=== PATIENT | female | born 1940 | race Caucasian/White ===

== ENCOUNTER 2020-07-16 18:30 | Emergency (ER) | payer MEDICARE ==
[~2020-07-16] VITALS: Ht 177.8 cm; Wt 70.0 kg
[2020-07-16] MEDS ORDERED: ASPI-630 PO (18:40)
[2020-07-16] MEDS ORDERED: AMLO5TAB4 PO (18:40)
--- NOTE | 2020-07-16 19:05 | PHYS DOC ---
Past History Past Medical History: A-Fib Alcohol Use: None General Adult EDM: Chief Complaint: RAPID HEART RATE HPI: HPI: Patient is a 79-year-old female coming in for rapid heart rate. Patient states that while she was cooking today she noticed her heart rate was elevated, will when checked it was in the 1 15-1 20 range. Patient has a history of A. fib and says she is normally well rate and rhythm controlled on sotalol and her heart rate is usually in the 60s. States she called her outside installer apprentice around 1600 and was told to take her evening dose of sotalol. She was instructed to go to the emergency department if her heart rate did not respond in an hour and a half. Patient denies any chest pain or shortness of breath but says she feels like something is "off" in her sternal chest area. Also states she gets a little lightheaded when standing. Denies any recent illness or decreased p.o. intake. States she has been compliant on medications. Review of Systems: Review of Systems: Constitutional: Denies fever or chills Eyes: Denies change in visual acuity HENT: Denies nasal congestion or sore throat Respiratory: Denies cough or shortness of breath Cardiovascular: Substernal chest pain, no lower extremity edema, rapid heart rate GI: Denies abdominal pain, nausea, vomiting, bloody stools or diarrhea : Denies dysuria Musculoskeletal: Denies back pain or joint pain Integument: Denies rash Neurologic: Denies headache, focal weakness or sensory changes Endocrine: Denies polyuria or polydipsia Lymphatic: Denies swollen glands Psychiatric: Denies depression or anxiety Allergies: Allergies: Allergies Coded Allergies Type Severity Reaction Last Updated Verified No Known Drug Allergies 07/16/20 No Physical Exam: PE: Constitutional: Well developed, well nourished, no acute distress, non-toxic appearance. [] HENT: Normocephalic, atraumatic, bilateral external ears normal, oropharynx moist, no oral exudates, nose normal. [] Eyes: PERRLA, EOMI, conjunctiva normal, no discharge. [] Neck: Normal range of motion, no tenderness, supple, no stridor. [] Cardiovascular: Irregularly irregular rhythm, tachycardia Lungs & Thorax: Slight basilar crackles Abdomen: Bowel sounds normal, soft, no tenderness, no masses, no pulsatile masses. [] Skin: Warm, dry, no erythema, no rash. [] Back: No tenderness, no CVA tenderness. [] Extremities: No tenderness, no cyanosis, no clubbing, ROM intact, no edema. [] Neurologic: Alert and oriented X 3, normal motor function, normal sensory function, no focal deficits noted. [] Psychologic: Affect normal, judgement normal, mood normal. [] Current Patient Data: Vital Signs: Vital Signs Date Time Temp Pulse Resp B/P (MAP) Pulse Ox O2 Delivery O2 Flow Rate FiO2 07/16/20 18:51 97.3 117 143/94 (110) 98 Room Air 07/16/20 18:44 18 EKG: EKG: Regular regular, atrial fibrillation, heart rate 126, no ST elevation or depression, left axis deviation. [] Radiology/Procedures: Radiology/Procedures: CHEST PA LATERAL History: Reason: afib onset this afternoon, lightheaded / Spl. Instructions: / History: Comparison: CT December 15, 2010 Findings: Hyperinflation. No consolidation or pleural effusion. Normal heart size. No pneumothorax. Postop changes upper abdomen. Impression: 1. No acute cardiopulmonary process. [] Heart Score: HEART Score for Chest Pain: HEART Score for Chest Pain Response (Comments) Value History Slighlty/Non-Suspicious 0 ECG Nonspecific Repolarizatio 1 Age > 65 2 Risk Factors 1 or 2 Risk Factors 1 Total 4 Risk Factors: Risk Factors: DM, Current or recent (<one month) smoker, HTN, HLP, family history of CAD, obesity. Risk Scores: Score 0 - 3: 2.5% MACE over next 6 weeks - Discharge Home Score 4 - 6: 20.3% MACE over next 6 weeks - Admit for Clinical Observation Score 7 - 10: 72.7% MACE over next 6 weeks - Early Invasive Strategies Course & Med Decision Making: Course & Med Decision Making Pertinent Labs and Imaging studies reviewed. (See chart for details) Consult with Dr. Luna who was able to access patient's charts from . Does not recommend cardioversion in the emergency department and recommends increasing patient's sotalol to 120 mg twice daily and having her follow-up with her outside installer apprentice in 2 days. However patient's repeat troponin at 4 hours after symptom onset shows it has gone up from undetectable to 0.045. Discussed with patient she would like to be transferred to since that is where her outside installer apprentice is. Discussed with transfer line, patient accepted by the hospitalist [] Blanca Disclaimer: Blanca Disclaimer: This electronic medical record was generated, in whole or in part, using a voice recognition dictation system. Departure Departure: Impression: Primary Impression: Paroxysmal atrial fibrillation Additional Impression: Urinary tract infection Disposition: 02 DC/TRF OTHER SHORT TERM HOS Condition: GUARDED Referrals: Dr. Fernández Patient Instructions: Atrial Fibrillation Scripts Nitrofurantoin Monohyd/M-Cryst (MACROBID 100 MG CAPSULE) 100 Mg Capsule 1 CAP PO BID for UTI for 5 Days, #10 CAP 0 Refills Prov: ISMAEL GRAY MD 07/16/20 ISMAEL GRAY MD Jul 16, 2020 19:05
[2020-07-16] MEDS ORDERED: [UNRECOGNIZED DRUG - OTHER] (19:14)
[2020-07-16] MEDS ORDERED: COLC0.6T45 PO (19:14)
[2020-07-16] MEDS ORDERED: LORA10TA68 PO (19:14)
[2020-07-16 19:15] LABS: BASO % 1 % (0-3); EOS # 0.1 x10^3/uL (0.0-0.7); EOS % 1 % (0-3); HEMATOCRIT 42.5 % (36.0-47.0); HEMOGLOBIN 13.6 g/dL (12.0-15.5); LYMPH # 1.7 x10^3/uL (1.0-4.8); LYMPH % 19 % (24-48); MEAN CORPUSCULAR HEMOGLOBIN 29 pg (25-35); MEAN CORPUSCULAR HGB CONC 32 g/dL (31-37); MEAN CORPUSCULAR VOLUME 92 fL (79-100); MONO # 0.7 x10^3/uL (0.0-1.1); MONO % 7 % (0-9); NEUT # 6.7 x10^3uL (1.8-7.7); NEUT % 73 % (31-73); PLATELET COUNT 347 x10^3/uL (140-400); RED BLOOD COUNT 4.62 x10^6/uL (3.50-5.40); RED CELL DISTRIBUTION WIDTH 14.3 % (11.5-14.5); WHITE BLOOD COUNT 9.1 x10^3/uL (4.0-11.0)
[2020-07-16 19:17] LABS: CALCIUM 8.9 mg/dL (8.5-10.1); CREATININE 0.9 mg/dL (0.6-1.0); GFR 60.4
[2020-07-16] MEDS ORDERED: WARF5TAB2 PO (19:26)
[2020-07-16] MEDS ORDERED: IPRA15SP2 NS (19:26)
[2020-07-16] MEDS ORDERED: OMEP20CA5 PO (19:26)
[2020-07-16] MEDS ORDERED: SUCR1TAB35 PO (19:26)
[2020-07-16] MEDS ORDERED: LORA0.5T21 PO (19:26)
[2020-07-16] MEDS ORDERED: LOSA100T2 PO (19:26)
[2020-07-16] MEDS ORDERED: SOTA80TA20 PO (19:26)
[2020-07-16 19:29] LABS: ALBUMIN 3.3 g/dL (3.4-5.0); ALBUMIN/GLOBULIN RATIO 0.8 (1.0-1.7); MAGNESIUM 2.2 mg/dL (1.8-2.4); TOTAL BILIRUBIN 0.4 mg/dL (0.2-1.0); TOTAL PROTEIN 7.4 g/dL (6.4-8.2)
[2020-07-16 19:39] LABS: BILIRUBIN,URINE NEG (NEG); CLARITY,URINE HAZY; COLOR,URINE YELLOW; GLUCOSE,URINE NEG (NEG)
[2020-07-16 19:40] LABS: BACTERIA,URINE FEW /HPF (0-FEW); NITRITE,URINE NEG (NEG); SQUAMOUS EPITHELIAL CELL,UR FEW /LPF; UROBILINOGEN,URINE 0.2 mg/dL (0.2 mg/dL); WBC,URINE >40 /HPF (0-4)
--- NOTE | 2020-07-16 19:42 | RAD ---
CHEST PA LATERAL History: Reason: afib onset this afternoon, lightheaded / Spl. Instructions: / History: Comparison: CT December 15, 2010 Findings: Hyperinflation. No consolidation or pleural effusion. Normal heart size. No pneumothorax. Postop changes upper abdomen. Impression: 1. No acute cardiopulmonary process. Electronically signed by: Antonio Gómez DO (07/16/2020 7:39 PM) [facility] [place]
[2020-07-16] MEDS ORDERED: IV NORMAL SALINE 500ML 500 ML IV ONE (19:45)
--- NOTE | 2020-07-16 19:56 | EKG ---
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
[2020-07-16] MEDS ORDERED: NITR100C62 PO (20:21)
[2020-07-16] MEDS ORDERED: SOTALOL 80 MG TABLET. PO ONE (20:45)
[2020-07-16 21:33] VITALS: BP 136/77
== END 2020-07-16 22:07 | disposition short-term general hospital (02) ==
LOC: ER 18:30
DX: I48.0 Paroxysmal atrial fibrillation (principal); N39.0 Urinary tract infection, site not specified
CPT/HCPCS: 36415; 71046; 80053; 81001; 83690; 83735; 83880; 84484; 85025; 85379; 85610; 87086; 93005; 99285; J7040

== ENCOUNTER 2020-08-03 17:55 | Emergency (ER) | payer MEDICARE ==
[~2020-08-03] VITALS: Ht 177.8 cm; Wt 70.0 kg
[~2020-08-03 17:55] MED LIST: AMLO5TAB4 PO; ASPI-630 PO; COLC0.6T45 PO; IPRA15SP2 NS; LORA0.5T21 PO; LORA10TA68 PO; LOSA100T2 PO; NITR100C62 PO; OMEP20CA5 PO; SOTA80TA20 PO; SUCR1TAB35 PO; WARF5TAB2 PO; [UNRECOGNIZED DRUG - OTHER]
--- NOTE | 2020-08-03 18:27 | PHYS DOC ---
Past History Past Medical History: A-Fib Alcohol Use: None Adult General Chief Complaint Chief Complaint: SHORTNESS OF BREATH HPI HPI Patient is a 79-year-old female comes emergency department with complaints of shortness of breath with a cough for the last several months, patient states is been getting a little worse over the past 2 months, patient states she has been seeing her primary care Dr. Sai Juarez several times and does not feel like she is being treated closely enough, patient states that she had a negative Covid test on 1124, patient states that she was given a Medrol dose pack for a diagnosis of seasonal allergies approximately 5 days ago and has just 1 or 2 doses left reports she has done, patient states that Dr. Juarez started her on Flonase nasal spray along with Singulair which she started yesterday has taken 1 dose and did not feel immediately better so she decided she should come into the emergency department and have her symptoms evaluated. Patient reports of a runny nose for greater than a year, states that she has this liquid in her throat for approximately a year, patient states that she has been congested and coughing up white mucus for greater than 2 months, patient does deny chest pain, denies shortness of breath however reports that she does get a little short of breath if she is up moving around a lot, patient denies any cough at rest, patient states that when she goes to bed at night that she does experience some cough and this is when she expels her white sputum. Patient states that she has a bad stomach and she has been nauseated her entire life and has found no medications that help her. Patient denies any other physical illness or physical complaints. Review of Systems Review of Systems 14 body systems of review of systems have been reviewed. See HPI for pertinent positives and negative responses, otherwise all other systems are negative, nonpertinent or noncontributory. Current Medications Current Medications Amlodipine 5 mg twice daily, 81 mg ASA EC daily, Lipitor 20 mg daily, Wellbutrin XL 150 mg daily, 10 mg Claritin daily, HydroDIURIL 12.5 mg daily, Atrovent 42 mcg nasal spray daily, Imodium AD as needed, Pacerone 200 mg, prednisone 10 mg, Ativan 0.5 mg every 8 hours, Cozaar 100 mg daily, omeprazole DR 20 mg twice daily, Osteo Bi-Flex daily, 20 mEq potassium chloride SR daily, Carafate 1 g tablet 4 times daily, MVI daily, 5 mg Coumadin daily, Allergies Allergies Allergies Coded Allergies Type Severity Reaction Last Updated Verified No Known Drug Allergies 07/16/20 No Physical Exam Physical Exam Constitutional: Well developed, well nourished, no acute distress, non-toxic appearance. HENT: Normocephalic, atraumatic, bilateral external ears normal, oropharynx moist, no oral exudates, nose normal. Eyes: PERRLA, EOMI, conjunctiva normal, no discharge. Neck: Normal range of motion, no tenderness, supple, no stridor. Cardiovascular:Heart rate regular rhythm, no murmur Lungs & Thorax: Left lower lobe inspiratory and expiratory crackles to auscultation otherwise no adventitious lung sounds noted on left upper lobe or right upper middle or lower lobes. Abdomen: Bowel sounds normal, soft, no tenderness, no masses, no pulsatile masses. Skin: Warm, dry, no erythema, no rash. Back: No tenderness, no CVA tenderness. Extremities: No tenderness, no cyanosis, no clubbing, ROM intact, no edema. Neurologic: Alert and oriented X 3, normal motor function, normal sensory function, no focal deficits noted. Psychologic: Affect normal, judgement normal, mood normal. Current Patient Data Vital Signs Patient's initial vital signs upon examination left upper extremity 141/61 on NIBP, oral temp 97.6, respirations 16 and nonlabored, heart rate 102, oxygen saturation 95% on room air. Lab Results Laboratory Tests Test 08/03/20 18:25 White Blood Count 4.5 x10^3/uL Red Blood Count 4.70 x10^6/uL Hemoglobin 13.6 g/dL Hematocrit 42.4 % Mean Corpuscular Volume 90 fL Mean Corpuscular Hemoglobin 29 pg Mean Corpuscular Hemoglobin Concent 32 g/dL Red Cell Distribution Width 14.0 % Platelet Count 190 x10^3/uL Neutrophils (%) (Auto) 78 % Lymphocytes (%) (Auto) 12 % Monocytes (%) (Auto) 10 % Eosinophils (%) (Auto) 0 % Basophils (%) (Auto) 0 % Neutrophils # (Auto) 3.5 x10^3uL Lymphocytes # (Auto) 0.5 x10^3/uL Monocytes # (Auto) 0.5 x10^3/uL Eosinophils # (Auto) 0.0 x10^3/uL Basophils # (Auto) 0.0 x10^3/uL Prothrombin Time > 120.0 SEC Prothromb Time International Ratio > 10.0 Activated Partial Thromboplast Time 68 SEC D-Dimer (Jaclyn) 0.29 mg/L Sodium Level 139 mmol/L Potassium Level 3.8 mmol/L Chloride Level 100 mmol/L Carbon Dioxide Level 28 mmol/L Anion Gap 11 Blood Urea Nitrogen 28 mg/dL Creatinine 1.1 mg/dL Estimated GFR (Cockcroft-Gault) 47.9 BUN/Creatinine Ratio 25 Glucose Level 141 mg/dL Lactic Acid Level 1.8 mmol/L Calcium Level 8.5 mg/dL Magnesium Level 2.1 mg/dL Total Bilirubin 0.7 mg/dL Aspartate Amino Transf (AST/SGOT) 44 U/L Alanine Aminotransferase (ALT/SGPT) 29 U/L Alkaline Phosphatase 108 U/L Troponin I Quantitative < 0.017 ng/mL Total Protein 6.2 g/dL Albumin 2.6 g/dL Albumin/Globulin Ratio 0.7 Current Medications Medications (Trade) Dose Ordered Sig/Rosa Route PRN Reason Start Time Stop Time Status Last Admin Dose Admin Albuterol Sulfate (Ventolin) 2.5 mg STK-MED ONCE .ROUTE 08/03/20 18:57 08/03/20 18:57 DC Phytonadione (Vitamin K) 2.5 mg 1X ONCE SQ 08/03/20 20:15 08/03/20 20:31 DC 08/03/20 20:15 Azithromycin (Zithromax) 500 mg 1X ONCE PO 08/03/20 20:30 08/03/20 20:31 DC 08/03/20 20:30 EKG EKG EKG performed at 1842 by ED staff, heart rate 99, irregular heartbeat shows atrial fibrillation without other ectopy, no P waves appreciated, QTc interval 0.462, no ACS, no acute ischemia, no acute STEMI noted, EKG interpreted by ED attending Dr. Barlow. Radiology/Procedures Radiology/Procedures STATUS: REG ER ORD. PHYSICIAN: LOUANN SUÁREZ APRN REASON: SHORT OF BREATH PROCEDURE: CHEST PA & LATERAL Exam: Chest 2 views INDICATION: Shortness of breath TECHNIQUE: Frontal and lateral views of the chest Comparisons: 07/16/2020 FINDINGS: The cardiomediastinal silhouette and pulmonary vessels are within normal limits. Patchy left basilar airspace disease. No pleural effusion. IMPRESSION: Patchy bibasilar airspace disease. This may be infectious or inflammatory in etiology. Electronically signed by: Mariela Washington MD (08/03/2020 7:24 PM) [facility] AND SIGNED BY: MARIELA WASHINGTON MD DATE: 08/03/201922 CC: LOUANN SUÁREZ APRN; SAI JUAREZ MD ~MTH0 0 Heart Score Risk Factors: Risk Factors: DM, Current or recent (<one month) smoker, HTN, HLP, family history of CAD, obesity. Risk Scores: Risk Factors: DM, Current or recent (<one month) smoker, HTN, HLP, family history of CAD, obesity. Course & Med Decision Making Course & Med Decision Making Pertinent Labs and Imaging studies reviewed. (See chart for details) 79-year-old female presented emergency department with multiple concerns of cough and congestion that been going on for several months. Patient states she is followed closely by her primary Dr. Sai Juarez and has just recently been treated with a Medrol Dosepak, Flonase nasal spray, Singulair, patient s tates that she does not feel like these medications are working, patient has asked for a breathing treatment to be done here in the emergency department. Physical examination revealed adventitious lung sounds left lower lobe, a albuterol treatment was initiated by isle respiratory therapy. Upon reexamination patient's lungs were clear to auscultation, patient had no further complaints of shortness of breath, however patient did not have any complaints of shortness of breath while she was in the emergency department. Patient's labs were negative for infectious process however patient is on Coumadin, patient's INR was greater than 10. Patient was given 2.5 mg subcu vitamin K, discussed elevated INR with patient, recommended she stop taking her Coumadin un til reevaluated by her primary care physician and/or cartridge maker and has her serial PT/INR lab work completed and should not start back on her Coumadin until directed by her primary care physician or cartridge maker. Patient did not show any signs of bleeding externally, there were no signs of new bruising on patient's extremities, patient did state however that she bruises often since starting her Coumadin, patient states that her last INR was only 2.5 but that was 3 months ago and is due soon for a INR recheck with her cartridge maker. Patient's chest x-ray also read by house radiologist interpretation of left lower lobe patchy infiltrates without effusion, discussed findings with patient, will start on Zithromax/Z-Curt. Patient gave verbal understanding of antibiotic use, gave verbal understanding of stopping taking her Coumadin and the reason she was receiving vitamin K in the emergency department today. Patient's curb 65 score equals 1, not recommended for inpatient treatment for community- acquired pneumonia, will treat with Z-Curt at home, patient feels comfortable treating her pneumonia with Z-Curt at home, patient also has close follow-up with her primary care physician Dr. Sai Juarez, patient is nontoxic in appearance, does not have any complaints of chest pain or shortness of breath, I feel comfortable discharging patient home for outpatient trial of community acquired pneumonia treatment. Patient states that she will see her Dr. Juarez tomorrow, patient gave verbal understanding of discharge home instructions, return to ER concerns, patient had no further questions or concerns, patient discharged home without incident. Diagnosis elevated INR, Coumadin toxicity, community-acquired pneumonia. Dragon Disclaimer Dragon Disclaimer This electronic medical record was generated, in whole or in part, using a voice recognition dictation system. Departure Departure: Impression: Primary Impression: Elevated INR Additional Impressions: Coumadin toxicity CAP (community acquired pneumonia) Disposition: 01 DC HOME SELF CARE/HOMELESS Condition: IMPROVED Referrals: SAI JUAREZ MD (PCP) Patient Instructions: Pneumonia, Adult, Warfarin Coagulopathy Additional Instructions: Do not take your Coumadin until directed by either Dr. Juarez or your cartridge maker, your PT/INR was greater than 10, you were given 2.5 mg of vitamin K subcutaneously, please follow-up with your doctor tomorrow for a reevaluation of your PT/INR and do not start your Coumadin until directed by your doctor. You were started on Zithromax for a community-acquired pneumonia, please let your Dr. Juarez know that you are taking this medication, follow-up with Dr. Juarez tomorrow, return to the emergency department immediately for worsening symptoms or other concerns. EMERGENCY DEPARTMENT GENERAL DISCHARGE INSTRUCTIONS Thank you for coming to [facility] (ED) today and trusting us with you care. We trust that you had a positivie experience in our Emergency Department. If you wish to speak to the department management, you may call the director at [phone]. YOUR FOLLOW UP INSTRUCTIONS ARE FOLLOWS: 1. Do you have a private Doctor? If you do not have a private doctor, please ask for a resource list of physicians or clinics that may be able to assist you with follow up care. 2. The Emergency Physician has interpreted your x-rays. The X-Ray specialist will also review them. If there is a change in the findings, you will be notified in 48 hours when at all possible. 3. A lab test or culture has been done, your results will be reviewed and you will be notified if you need a change in treatment. ADDITIONAL INSTRUCTIONS AND INFORMATION: 1. Your care today has been supervised by a physician who is specially trained in emergency care. Many problems require more than one evaluation for a complete diagnosis and treatment. We recommend that you schedule your follow up appointment as recommended to ensure complete treatment of you illness or injury. If you are unable to obtain follow up care and continue to have a problem, or if your condition worsens, we recommend that you return to the ED. 2. We are not able to safely determine your condition over the phone nor are we able to give sound medical advice over the phone. For these safety reasons, if you call for medical advice we will ask you to come to the ED for further evaluation. 3. If you have any questions regarding these discharge instructions please call the ED at [phone]. SAFETY INFORMATION: In the interest of safety, wellness, and injury prevention; we encourage you to wear your sealbelt, if you smoke; quite smoking, and we encourage family to use a protective helmet for bicycling and other sporting events that present an increased risk for head injury. IF YOUR SYMPTOMS WORSEN OR NEW SYMPTOMS DEVELOP, OR YOU HAVE CONCERNS ABOUT YOUR CONDITION; OR IF YOUR CONDITION WORSENS WHILE YOU ARE WAITING FOR YOUR FOLLOW UP APPOINTMENT; EITHER CONTACT YOUR PRIMARY CARE DOCTOR, THE PHYSICIAN WHOSE NAME AND NUMBER YOU WERE GIVEN, OR RETURN TO THE ED IMMEDIATELY. Scripts Azithromycin (ZITHROMAX) 250 Mg Tablet 1 PKG PO UD for PNEUMONIA, #6 TAB 0 Refills Prov: LOUANN SUÁREZ APRN 08/03/20 Problem Qualifiers Additional Impressions: Coumadin toxicity Encounter type: initial encounter Injury intent: accidental or uninten tional Qualified Codes: T45.511A - Poisoning by anticoagulants, accidental (unintentional), initial encounter CAP (community acquired pneumonia) Laterality: left Lung location: lower lobe of lung Qualified Codes: J18.9 - Pneumonia, unspecified organism LOUANN SUÁREZ APRN Aug 03, 2020 18:27
[2020-08-03] MEDS ORDERED: ALBUTEROL SULFATE 2.5 MG/3 ML NEBU. ONE (18:57)
[2020-08-03 19:22] LABS: BASO % 0 % (0-3); EOS % 0 % (0-3); HEMATOCRIT 42.4 % (36.0-47.0); HEMOGLOBIN 13.6 g/dL (12.0-15.5); LYMPH # 0.5 x10^3/uL (1.0-4.8); LYMPH % 12 % (24-48); MEAN CORPUSCULAR HEMOGLOBIN 29 pg (25-35); MEAN CORPUSCULAR HGB CONC 32 g/dL (31-37); MEAN CORPUSCULAR VOLUME 90 fL (79-100); MONO # 0.5 x10^3/uL (0.0-1.1); MONO % 10 % (0-9); NEUT # 3.5 x10^3uL (1.8-7.7); NEUT % 78 % (31-73); PLATELET COUNT 190 x10^3/uL (140-400); WHITE BLOOD COUNT 4.5 x10^3/uL (4.0-11.0)
--- NOTE | 2020-08-03 19:26 | RAD ---
Exam: Chest 2 views INDICATION: Shortness of breath TECHNIQUE: Frontal and lateral views of the chest Comparisons: 07/16/2020 FINDINGS: The cardiomediastinal silhouette and pulmonary vessels are within normal limits. Patchy left basilar airspace disease. No pleural effusion. IMPRESSION: Patchy bibasilar airspace disease. This may be infectious or inflammatory in etiology. Electronically signed by: Mariela Crump MD (08/03/2020 7:24 PM) [facility]
[2020-08-03 19:29] LABS: CALCIUM 8.5 mg/dL (8.5-10.1); CREATININE 1.1 mg/dL (0.6-1.0); GFR 47.9; POTASSIUM 3.8 mmol/L (3.5-5.1)
--- NOTE | 2020-08-03 19:37 | EKG ---
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
[2020-08-03 19:43] LABS: ALBUMIN 2.6 g/dL (3.4-5.0); ALBUMIN/GLOBULIN RATIO 0.7 (1.0-1.7); MAGNESIUM 2.1 mg/dL (1.8-2.4); TOTAL BILIRUBIN 0.7 mg/dL (0.2-1.0); TOTAL PROTEIN 6.2 g/dL (6.4-8.2)
[2020-08-03] MEDS ORDERED: PHYTONADIONE 10 MG/ML AMPUL. SQ ONE (20:15)
[2020-08-03] MEDS ORDERED: AZITHROMYCIN 250 MG TABLET. PO ONE (20:30)
[2020-08-03 20:33] VITALS: BP 125/75
[2020-08-03] MEDS ORDERED: AZIT250T PO (21:07)
== END 2020-08-03 21:17 | disposition home or self-care (01) ==
LOC: ER 17:55
DX: J18.9 Pneumonia, unspecified organism (principal); T45.515A Adverse effect of anticoagulants, initial encounter; R79.1 Abnormal coagulation profile; I48.91 Unspecified atrial fibrillation; Y92.89 Other specified places as the place of occurrence of the external cause
CPT/HCPCS: 36415; 71046; 80053; 83605; 83735; 84484; 85025; 85379; 85610; 85730; 93005; 94640; 96372; 99285; J0456; J3430

== ENCOUNTER 2020-08-05 14:37 | Inpatient (IN) | payer MEDICARE ==
[~2020-08-05] VITALS: Ht 177.8 cm; Wt 65.5 kg
[~2020-08-05 14:37] MED LIST changes: +AZIT250T PO
--- NOTE | 2020-08-05 15:06 | PHYS DOC ---
Past History Past Medical History: A-Fib (EDELMIRAELISSA ZAYAS) Past Surgical History: No Surgical History (ELISSA HICKEY DO) Alcohol Use: None (ELISSA HICKEY DO) Adult General Chief Complaint Chief Complaint: WEAKNESS/GENERALIZED HPI HPI Patient is a 79yo female presenting for SHOB. She was seen at our facility ~48 hours ago. She has had UTI-like symptoms and progressive shortness of breath without fever or productive cough. She has been at home with who has been experiencing similar symptoms, no known COVID-19 contact. She reports increased work of breathing for past 12 hours with poor sleep which concerned her prompting her to come back for repeat evaluation (ELISSA HICKEY DO) Review of Systems Review of Systems Fourteen body systems of review of systems have been reviewed. See HPI for pertinent positives and negative responses, other garza all other systems are negative, non-pertinent or non-contributory (EDELMIRAELISSA ZAYAS) Allergies Allergies Allergies Coded Allergies Type Severity Reaction Last Updated Verified No Known Drug Allergies 08/05/20 No (ELISSA HICKEY DO) Physical Exam Physical Exam Constitutional: Pt is oriented to person, place, and time. Pt appears well-developed and thin. Hypoxic on room air HEENT: Head: Normocephalic and atraumatic. External ears unremarkable Conjunctivae and EOM are normal. Pupils are equal, round, and reactive to light. Oropharynx is clear and moist with post-nasal drip present No hematomas or lacerations or abrasions to face or scalp OP clear, no blood, no malocclusion, dentition intact Nares clear, no nasal septal hematoma Midface stable Neck: C-spine midline nontender, no step-offs Cardiovascular: Tachycardic rate, irregular rhythm and normal heart sounds. Pulmonary/Chest: Effort normal, course breath sounds bilaterally with diminished sounds in bilateral lower lobes. No respiratory distress. No wheezes. Abdominal: Soft. Bowel sounds are normal. Pt exhibits no distension. There is no tenderness. Musculoskeletal: No bony tenderness to extremities, no deformities, full ROM extremities Chest wall stable Pelvis stable and non-tender No vertebral TTP and spine without stepoffs Neurological: Pt is alert and oriented to person, place, and time. Moving all extremities willfully, able to wiggle all fingers and toes Alert and oriented x 3 Sensation grossly intact Skin: Skin is warm and dry. No abrasions, no lacerations Psychiatric: Behavior is appropriate for situation (ELISSA HICKEY DO) Current Patient Data Vital Signs Vital Signs Date Time Temp Pulse Resp B/P (MAP) Pulse Ox O2 Delivery O2 Flow Rate FiO2 08/05/20 17:43 93 17 125/87 (100) 93 2.0 08/05/20 14:45 98.6 Room Air Lab Results Laboratory Tests Test 08/05/20 15:21 08/05/20 15:22 White Blood Count 6.6 x10^3/uL (4.0-11.0) Red Blood Count 4.66 x10^6/uL (3.50-5.40) Hemoglobin 13.5 g/dL (12.0-15.5) Hematocrit 41.6 % (36.0-47.0) Mean Corpuscular Volume 89 fL (79-100) Mean Corpuscular Hemoglobin 29 pg (25-35) Mean Corpuscular Hemoglobin Concent 32 g/dL (31-37) Red Cell Distribution Width 14.1 % (11.5-14.5) Platelet Count 213 x10^3/uL (140-400) Neutrophils (%) (Auto) 84 % (31-73) Lymphocytes (%) (Auto) 9 % (24-48) Monocytes (%) (Auto) 8 % (0-9) Eosinophils (%) (Auto) 0 % (0-3) Basophils (%) (Auto) 0 % (0-3) Neutrophils # (Auto) 5.5 x10^3uL (1.8-7.7) Lymphocytes # (Auto) 0.6 x10^3/uL (1.0-4.8) Monocytes # (Auto) 0.5 x10^3/uL (0.0-1.1) Eosinophils # (Auto) 0.0 x10^3/uL (0.0-0.7) Basophils # (Auto) 0.0 x10^3/uL (0.0-0.2) Prothrombin Time 44.7 SEC (9.4-11.4) Prothromb Time International Ratio 4.6 (0.9-1.1) Activated Partial Thromboplast Time 50 SEC (23-33) Sodium Level 131 mmol/L (136-145) Potassium Level 3.3 mmol/L (3.5-5.1) Chloride Level 96 mmol/L (98-107) Carbon Dioxide Level 27 mmol/L (21-32) Anion Gap 8 (6-14) Blood Urea Nitrogen 29 mg/dL (7-20) Creatinine 0.9 mg/dL (0.6-1.0) Estimated GFR (Cockcroft-Gault) 60.4 Glucose Level 106 mg/dL (70-99) Lactic Acid Level 1.3 mmol/L (0.4-2.0) Calcium Level 8.5 mg/dL (8.5-10.1) Creatine Kinase 116 U/L (26-192) Troponin I Quantitative < 0.017 ng/mL (0-0.055) WG-Wat-G-Type Natriuretic Peptide 1794 pg/mL (0-449) Influenza Type A (Rapid) Negative (NEGATIVE) Influenza Type B (Rapid) Negative (NEGATIVE) (ELISSA HICKEY DO) EKG EKG EKG ordered and interpreted by myself its 1504 hrs. as atrial fibrillation with ventricular rate of 102 bpm, prolonged QTC 474, left axis deviation, nonspecific ST-T wave abnormalities noted in V4, V5 and V6 (ELISSA HICKEY DO) Radiology/Procedures Radiology/Procedures XR CHEST 1V History: Reason: FATIGUE / Spl. Instructions: / History: Comparison: August 03, 2020 Findings: Patchy bibasilar opacities, increased on the left. Small left pleural effusion, unchanged. No pneumothorax. Unchanged heart size. Postoperative changes upper abdomen. Impression: 1. Patchy bibasilar opacities, increased on the left. 2. Stable small left pleural effusion. Electronically signed by: Antonio Gómez DO (08/05/2020 3:37 PM) [id number] (ELISSA HICKEY DO) Radiology/[place] [address] IMAGING REPORT Signed PATIENT: LUIS DANIEL MOLINA ACCOUNT: [id number] : 1940 LOCATION: ER AGE: 79 SEX: F EXAM STATUS: REG ER ORD. PHYSICIAN: ELISSA HICKEY DO REASON: FATIGUE PROCEDURE: PORTABLE CHEST 1V XR CHEST 1V History: Reason: FATIGUE / Spl. Instructions: / History: Comparison: August 03, 2020 Findings: Patchy bibasilar opacities, increased on the left. Small left pleural effusion, unchanged. No pneumothorax. Unchanged heart size. Postoperative changes upper abdomen. Impression: 1. Patchy bibasilar opacities, increased on the left. 2. Stable small left pleural effusion. Electronically signed by: Antonio Gómez DO (08/05/2020 3:37 PM) [id number] DICTATED AND SIGNED BY: ANTONIO GÓMEZ DO DATE: 08/05/20 1535 CC: ELISSA HICKEY DO; SAI JUAREZ MD ~MTH0 0 (HANNAH VALIENTE MD) Heart Score HEART Score for Chest Pain: HEART Score for Chest Pain Response (Comments) Value History Slighlty/Non-Suspicious 0 ECG Nonspecific Repolarizatio 1 Age > 65 2 Risk Factors >3 Risk Factors or Hx CAD 2 Troponin < Normal Limit 0 Total 5 Risk Factors: Risk Factors: DM, Current or recent (<one month) smoker, HTN, HLP, family history of CAD, obesity. Risk Scores: Risk Factors: DM, Current or recent (<one month) smoker, HTN, HLP, family history of CAD, obesity. (ELISSA HICKEY DO) Course & Med Decision Making Course & Med Decision Making Pertinent Labs and Imaging studies reviewed. (See chart for details) Discussed most likely diagnosis of room air hypoxia likely due to bibasilar PNA, cannot exclude COVID-19. Patient tested for this and results pending I reviewed case with national expansion recruiter hospitalist who agreed to admission. Patient updated on plan of care and amenable to admission. IV antibiotics started, patient to remain on supplemental oxygen and continued inpatient care will ensue All questions and concerns addressed prior to ED transfer to [facility] for admission Given the high probability of imminent or life threatening deterioration of the patients condition without intervention, the patient was immediately assessed by myself and the nurse, and cardiac monitoring initiated. The patient was also placed on oxygen and continuous pulse oximetry initiated. During the course of the patients stay, I spent a considerable amount of time at the bedside performing serial re-evaluations of the patients hemodynamic and clinical status because of the recognized potential threat to life or limb in this condition. Clinical management of this patient involved high complexity decision making to assess, manipulate, and support vital organ system failure. I then had a chance to review all of the available laboratory and radiographic studies obtained today, and I also reviewed old records available to me at the time. Sequential vital signs were obtained. Critical care time noted below was time spent engaged in work directly related to the individual patients care, not including time performing procedures; however it does include time spent at the immediate bedside or elsewhere on the floor or unit. TOTAL CRITICAL CARE TIME ELAPSED: in excess of 30 minutes. BODY SYSTEM AT HIGHEST RISK: Pulmonary (ELISSA HCIKEY DO) Dragon Disclaimer Dragon Disclaimer This electronic medical record was generated, in whole or in part, using a voice recognition dictation system. (ELISSA HICKEY DO) Departure Departure: Impression: Primary Impression: Pneumonia Additional Impressions: Person under investigation for COVID-19 Hypoxia Atrial fibrillation Warfarin anticoagulation Disposition: 09 ADMITTED INPT THIS HOSP Admitting Physician: Benson Banerjee (ELISAS HICKEY DO) Condition: STABLE Referrals: SAI JUAREZ MD (PCP) Blanca Disclaimer This chart was dictated in whole or in part using Voice Recognition software in a busy, high-work load, and often noisy Emergency Department environment. It may contain unintended and wholly unrecognized errors or omissions. (HANNAH VALIENTE MD) Dragon Disclaimer This chart was dictated in whole or in part using Voice Recognition software in a busy, high-work load, and often noisy Emergency Department environment. It may contain unintended and wholly unrecognized errors or omissions. (HANNAH VALIENTE MD) Problem Qualifiers ELISSA HICKEY DO Aug 05, 2020 15:06 HANNAH VALIENTE MD Aug 05, 2020 18:49
--- NOTE | 2020-08-05 15:40 | RAD ---
XR CHEST 1V History: Reason: FATIGUE / Spl. Instructions: / History: Comparison: August 03, 2020 Findings: Patchy bibasilar opacities, increased on the left. Small left pleural effusion, unchanged. No pneumot horax. Unchanged heart size. Postoperative changes upper abdomen. Impression: 1. Patchy bibasilar opacities, increased on the left. 2. Stable small left pleural effusion. Electronically signed by: Antonio Gómez DO (08/05/2020 3:37 PM) [id number]
[2020-08-05 15:46] LABS: BASO % 0 % (0-3); EOS % 0 % (0-3); HEMATOCRIT 41.6 % (36.0-47.0); HEMOGLOBIN 13.5 g/dL (12.0-15.5); LYMPH # 0.6 x10^3/uL (1.0-4.8); LYMPH % 9 % (24-48); MEAN CORPUSCULAR HEMOGLOBIN 29 pg (25-35); MEAN CORPUSCULAR HGB CONC 32 g/dL (31-37); MEAN CORPUSCULAR VOLUME 89 fL (79-100); MONO # 0.5 x10^3/uL (0.0-1.1); MONO % 8 % (0-9); NEUT # 5.5 x10^3uL (1.8-7.7); NEUT % 84 % (31-73); PLATELET COUNT 213 x10^3/uL (140-400); RED BLOOD COUNT 4.66 x10^6/uL (3.50-5.40); RED CELL DISTRIBUTION WIDTH 14.1 % (11.5-14.5); WHITE BLOOD COUNT 6.6 x10^3/uL (4.0-11.0)
[2020-08-05 15:52] LABS: CALCIUM 8.5 mg/dL (8.5-10.1); CREATININE 0.9 mg/dL (0.6-1.0); GFR 60.4; POTASSIUM 3.3 mmol/L (3.5-5.1)
--- NOTE | 2020-08-05 16:31 | EKG ---
[address] [address] Test Date: 2020-08-05 Test Time: 14:54:31 Pat Name: LUIS DANIEL MOLINA Department: Room: Gender: F [employer] System Administrator: LUCIANA : 1940 Requested By: ELISSA HICKEY Order Number: [id number] Reading MD: Measurements Intervals [place] Rate: 102 P: [place]: QRS: -11 QRSD: 90 T: 203 QT: 360 QTc: 474 Interpretive Statements ATRIAL FLUTTER LEFTWARD AXIS ST & T ABNORMALITY, CONSIDER ANTEROLATERAL ISCHEMIA OR LEFT VENTRICULAR STRAIN INFEROLATERAL ISCHEMIA OR LEFT VENTRICULAR STRAIN T ABNORMALITY IN ANTERIOR LEADS ABNORMAL ECG RI6.02 No previous ECG available for comparison
[2020-08-05 17:02] LABS: INFLUENZA A PATIENT NEGATIVE (NEGATIVE); INFLUENZA B PATIENT NEGATIVE (NEGATIVE)
[2020-08-05] MEDS ORDERED: POTASSIUM CHLORIDE 20 MEQ TABLET.ER. PO ONE (17:45)
--- NOTE | 2020-08-05 18:08 | HP ---
ADMIT DATE: 08/05/2020 ATTENDING PHYSICIAN: Dr. Arnold. CHIEF COMPLAINT: Weakness and mild shortness of breath. HISTORY OF PRESENT ILLNESS: The patient is a 79-year-old female admitted through the ED with new onset of generalized weakness. She was seen in the ED, just 2 days prior, she had a coagulopathy at that time, her Coumadin levels were elevated, INR of 10, no active bleeding, today is still high at 4.6. In the ED, she had a chest x-ray done, which showed bibasilar infiltrates. She has chronic left pleural effusion. No fevers, cough or congestion. No COVID exposure. Swab is pending at this time. She is admitted then with community-acquired pneumonia and coagulopathy. PAST MEDICAL HISTORY: Significant for paroxysmal atrial fibrillation, essential hypertension, gout and gastroesophageal reflux disease. PAST SURGICAL HISTORY: She is unclear about previous abdominal surgery. She tells me she had a recent Watchman procedure to treat her chronic atrial fibrillation. Essentially, she had resection of the atrial appendage. ALLERGIES: She has no known drug allergies. SOCIAL HISTORY: She was a smoker up to several years ago. She denies any alcohol use. CURRENT MEDICATIONS: Include Norvasc, aspirin, Zithromax, colchicine, Atrovent, lorazepam, losartan, Prilosec, Betapace twice a day, Coumadin, hydrochlorothiazide and Carafate. FAMILY HISTORY: Noncontributory. REVIEW OF SYSTEMS: Significant for the irregular heartbeat. She is still in atrial fibrillation. She was supposed to have a followup visit with the garment sewer hand in 2 weeks. She denied any recent COVID exposure. No cough, generalized weakness, some congestion. No nausea, vomiting, diarrhea. All other systems were reviewed and turned to be negative. There is no active bleeding or bleeding from her gums or GI tract. PHYSICAL EXAMINATION: GENERAL: When I saw her, this is a very pleasant elderly female in no acute distress. Her pulse is 102 and irregularly irregular, temperature 98.6 degrees Fahrenheit, blood pressure 125/81, oxygen saturation 88% on room air. HEENT: Head is without trauma. Pupils are reactive. Sclerae nonicteric. Oropharynx clear. NECK: Supple. LUNGS: Diminished breath sounds at both bases. CARDIOVASCULAR: Show irregularly irregular rhythm. No gallops. Peripheral pulses are palpable and full. ABDOMEN: Soft, scaphoid, nontender, no organomegaly. Bowel sounds are hypoactive. EXTREMITIES: Showed no cyanosis or edema. NEUROLOGIC: Focally intact. Speech is fluent. Truck Body Repairer intact. SKIN: Otherwise warm and dry. PERTINENT LABORATORY STUDIES: Chest x-ray as noted. Hemoglobin is 13.5 g/dL with white count of 6600. Sodium 131 mEq, potassium 3.3 mEq, creatinine is 0.9 mg/dL. Cardiac enzymes negative for coronary ischemia. BNP was slightly elevated at 1794. ASSESSMENT: 1. A 79-year-old female with upper respiratory tract infection, probable community-acquired pneumonia. 2. Rule out COVID-19 coronavirus. 3. Paroxysmal atrial fibrillation. 4. Essential hypertension. 5. Mild hypokalemia due to diuretics. PLAN: 1. Admit to the inpatient unit. 2. Telemetry monitoring. 3. Await COVID-19 swabs. 4. Continue Betapace. 5. Hold hydrochlorothiazide. 6. Hold Coumadin for now, we are allowing her INR to drift down. 7. Serial chemistries and INRs. 8. Diet as tolerated. 9. Empiric Rocephin for antibiotics. SINAI ARNOLD MD DR: TIMO/yancy JOB#: [id number] / [id number]
[2020-08-05 19:45] VITALS: BP 114/72
[2020-08-05] MEDS ORDERED: GLUC1TAB69 PO (20:53)
[2020-08-05] MEDS ORDERED: ATOR20TA58 PO (20:53)
[2020-08-05] MEDS ORDERED: HYDR12.58 PO (20:53)
[2020-08-05] MEDS ORDERED: AMIO200T7 PO (20:53)
[2020-08-05] MEDS ORDERED: POTA20TA4 PO (20:53)
[2020-08-05] MEDS ORDERED: DOXY-96 PO (20:53)
[2020-08-05] MEDS ORDERED: LOPE1LIQ7 PO (20:53)
[2020-08-05 23:30] VITALS: BP 109/53
[2020-08-06 00:08] LABS: BILIRUBIN,URINE NEG (NEG); CLARITY,URINE CLEAR; COLOR,URINE YELLOW; GLUCOSE,URINE NEG (NEG); NITRITE,URINE NEG (NEG); RBC,URINE 0 /HPF (0-2)
[2020-08-06 00:09] LABS: BACTERIA,URINE FEW /HPF (0-FEW); SQUAMOUS EPITHELIAL CELL,UR OCC /LPF
[2020-08-06 07:00] VITALS: BP 97/55
[2020-08-06 11:00] VITALS: BP 93/53
[2020-08-06] MEDS ORDERED: LORazepam 0.5 MG TABLET PO PRN (11:00)
[2020-08-06] MEDS ORDERED: hydroCHLOROthiazide 12.5 MG CAPSULE PO SCH (11:15)
[2020-08-06] MEDS: ASPIRIN CHEWABLE 81 MG TABLET. PO SCH (12:03)
[2020-08-06] MEDS: SUCRALFATE 1 GM TABLET. PO SCH ×3 (12:03→22:16)
[2020-08-06] MEDS: LACTOBACILLUS RHAMNOSUS GG 1 CAPSULE. PO SCH ×2 (12:04→20:11)
[2020-08-06] MEDS: POTASSIUM CHLORIDE 20 MEQ TABLET.ER. PO SCH (12:04)
[2020-08-06] MEDS: CETIRIZINE HCL 10 MG TABLET PO SCH (12:04)
[2020-08-06] MEDS: AMIODARONE HCL 200 MG TABLET. PO SCH ×2 (12:04→20:12)
[2020-08-06] MEDS: ATORVASTATIN CALCIUM 20 MG TABLET PO SCH (12:04)
[2020-08-06] MEDS: LOPERAMIDE 2 MG/15 ML ORAL SUSP. PO PRN (12:17)
[2020-08-06 15:00] VITALS: BP 95/62
[2020-08-06] MEDS ORDERED: POTASSIUM CHLORIDE 20 MEQ TABLET.ER. PO ONE (16:30)
[2020-08-06] MEDS ORDERED: AZITHROMYCIN 500 MG in IV NORMAL SALINE 250ML 250 ML IV ONE (16:30)
--- NOTE | 2020-08-06 16:39 | PN ---
DATE: 08/06/2020 SUBJECTIVE: The patient was admitted yesterday with complaint of cough, dizziness, lightheadedness, shortness of breath, but denied any fever and apparently was seen in the Emergency Room. Her chest x-ray showed patchy bibasilar opacities increased on the left, stable small left side pleural effusion and was admitted with diagnosis of community-acquired pneumonia; however, she was also swabbed to rule out possibility of COVID-19. When I saw her today, she continued to have cough, is mostly nonproductive, but denied any chest pain. She did complain of shortness of breath. She continued to desaturate to the right mid 80s on room air. Her oxygen improved to about 92-94% on 2 liters of oxygen. She continued to have markedly ____ irregular fast rate, especially on exertion and she talks. At rest, her heart rate is around 95-105 beats per minute. OBJECTIVE: GENERAL: When I examined her this afternoon, she looked pale, somewhat cachectic, but no jaundice, cyanosis, or thyromegaly. No jugular venous distention or limb edema. VITAL SIGNS: Her heart rate was 105, blood pressure was 108/65, temperature was 98, respiratory rate was 14 and oxygen saturation was 94% on 2 liters of oxygen. HEAD, EYES, EARS, NOSE AND THROAT: Showed normocephalic and atraumatic. NECK: Supple. HEART: Showed normal first and second heart sounds with no gallop, rub or murmur. CHEST: Clear to auscultation. No crepitation or rhonchi. ABDOMEN: Distended, soft, nontender. No guarding or rigidity. No organomegaly. All hernial orifice intact. Bowel sounds normal. NEUROLOGICAL: She is hard of hearing, but otherwise all cranial nerves intact. EXTREMITIES: She moves extremities without difficulty. LABORATORY DATA: Her lab work on admission showed a white cell count 6600, hemoglobin 13.5, hematocrit 41.8, MCV 89 and platelet count of 213,000 with a manual differential showed 84% polymorphs, 9% monocytes, and 9% lymphocytes. Her prothrombin time was 44.7, INR 4.6, aPTT was 50. Her chemistry showed a serum sodium 131, potassium 3.3, chloride 96, bicarbonate 27, anion gap of 8, BUN 29, creatinine 0.9, estimated GFR was 60 mL per minute. Her glucose 106, calcium was 8.5. CK was 116. Urinalysis was essentially unremarkable. Her influenza A and B were negative. Her chest x-ray showed patchy bibasilar opacities, increased on the small left side pleural effusion, unchanged. No pneumothorax, unchanged heart size, postoperative changes in upper abdomen. ASSESSMENT AND PLAN: The patient continues to be on all her medications. She was treated with ceftriaxone yesterday. I would restart her back on ceftriaxone and Zithromax. I will discontinue her hydrochlorothiazide and hold all her antihypertensive medication as she is borderline hypotensive. She apparently scheduled for cardioversion in sometime next week; however, I will consult our Cardiology team to evaluate her and see if adjustment of her medication might slow her heart rate. PARISH LEE MD DR: RUDI/yancy JOB#: [id number] / [id number]
[2020-08-06] MEDS: AZITHROMYCIN 500 MG in IV NORMAL SALINE 250ML 250 ML IV SCH (16:57)
[2020-08-06] MEDS: DEXAMETHASONE SOD PHOS 10 MG/ML VIAL. IV SCH (16:57)
[2020-08-06] MEDS ORDERED: DIGOXIN IV 500 MCG/2 ML AMPUL. IV ONE (18:30)
[2020-08-06 20:00] VITALS: BP 93/52
[2020-08-06 22:52] VITALS: BP 110/55
[2020-08-07] MEDS: SUCRALFATE 1 GM TABLET. PO SCH ×4 (05:04→23:00)
[2020-08-07 06:00] VITALS: BP 111/59
[2020-08-07 07:16] LABS: ALBUMIN 2.3 g/dL (3.4-5.0); ALBUMIN/GLOBULIN RATIO 0.5 (1.0-1.7); CALCIUM 8.8 mg/dL (8.5-10.1); GFR 53.5; TOTAL BILIRUBIN 0.6 mg/dL (0.2-1.0); TOTAL PROTEIN 7.2 g/dL (6.4-8.2)
--- NOTE | 2020-08-07 07:37 | PDOC2 ---
CARDIAC CONSULT DATE OF CONSULT DOS: DATE: 08/07/20 TIME: 07:32 REASON FOR CONSULT Reason for Consult AFIB/ flutter REFERRING PHYSICIAN Referring Physician Dr. Monroy SOURCE Source: Chart review, Patient HPI History of Present Illness This is a 79 yo female who presented secondary to shortness of breath, cough, and fatigue. Symptoms present for the last week. She was note in AFIB with RVR which prompted this consult. Was given IV digoxin and rate has been controlled. She follows with cardiology. Is scheduled for outpatient CV next week. Had Watchman placed last month. PAST MEDICAL HISTORY Cardiovascular: AFIB, HTN, hyperipidemia GI: GERD Heme/Onc: Other (GIB) PAST SURGICAL HISTORY Past Surgical History: Other (Watchman, Kailee fundoplication ) FAMILY HISTORY Family History: Cancer (lung ) SOCIAL HISTORY Smoke: Quit ALCOHOL: none Drugs: None Lives: with Family CURRENT MEDICATIONS Current Medications Current Medications Ceftriaxone Sodium 1 gm/ Sodium Chloride 50 ml @ 100 mls/hr 1X ONCE IV Last administered on 08/05/20at 20:16; Start 08/05/20 at 17:45; Stop 08/05/20 at 18:14; Status DC Potassium Chloride (Klor-Con) 40 meq 1X ONCE PO Last administered on 07/22 01/08at 20:17; Start 08/05/20 at 17:45; Stop 08/05/20 at 17:46; Status DC Lactobacillus Rhamnosus (Culturelle) 1 cap BID PO Last administered on 08/06/20at 20:11; Start 08/06/20 at 09:00 Amiodarone HCl (Cordarone) 200 mg BID PO Last administered on 08/06/20at 20:12; Start 08/06/20 at 11:15 Aspirin (Aspirin Chewable) 81 mg DAILY PO Last administered on 08/06/20at 12:03; Start 08/06/20 at 11:15 Atorvastatin Calcium (Lipitor) 20 mg DAILY PO Last administered on 08/06/20at 12:04; Start 08/06/20 at 11:15 Loperamide HCl (Immodium Oral Susp) 2 mg PRN DAILY PRN PO DIARRHEA Last administered on 08/06/20at 12:17; Start 08/06/20 at 11:00 Lorazepam (Ativan) 0.5 mg PRN Q8HRS PRN PO ANXIETY / AGITATION; Start 08/06/20 at 11:00 Potassium Chloride (Klor-Con) 20 meq DAILY PO Last administered on 08/06/20at 12:04; Start 08/06/20 at 11:15 Sucralfate (Carafate) 1 gm [id number] PO Last administered on 08/07/20at 05:04; Start 08/06/20 at 12:00 Hydrochlorothiazide (Microzide) 12.5 mg DAILY PO Last administered on 08/06/20at 12:04; Start 08/06/20 at 11:15; Stop 08/06/20 at 16:29; Status DC Cetirizine HCl (ZyrTEC) 10 mg DAILY PO Last administered on 08/06/20at 12:04; Start 08/06/20 at 11:15 Pantoprazole Sodium (Protonix) 40 mg DAILYAC PO ; Start 08/07/20 at 07:30 Ceftriaxone Sodium 1 gm/ Sodium Chloride 50 ml @ 100 mls/hr Q24H IV Last administered on 08/06/20at 16:57; Start 08/06/20 at 18:00 Azithromycin 500 mg/Sodium Chloride 250 ml @ 250 mls/hr 1X ONCE IV ; Start 08/06/20 at 16:30; Stop 08/06/20 at 16:42; Status DC Dexamethasone Sodium Phosphate (Decadron) 6 mg DAILY IV Last administered on 08/06/20at 16:57; Start 08/06/20 at 16:30 Potassium Chloride (Klor-Con) 40 meq 1X ONCE PO Last administered on 08/06/20at 16:58; Start 08/06/20 at 16:30; Stop 08/06/20 at 16:33; Status DC Azithromycin 500 mg/Sodium Chloride 250 ml @ 250 mls/hr Q24H IV Last administered on 08/06/20at 16:57; Start 08/06/20 at 17:00 Digoxin (Lanoxin) 500 mcg 1X ONCE IV Last administered on 08/06/20at 18:40; Start 08/06/20 at 18:30; Stop 08/06/20 at 18:31; Status DC Active Scripts Active Reported Doxycycline Hyclate 100 Mg Tablet.dr 100 Mg PO BID Klor-Con M20 (Potassium Chloride) 20 Meq Tab.er.prt 20 Meq PO DAILY Osteo Bi-Flex Caplet (Glucosamine Hcl/Chondr Felipe A Na) 1 Each Tablet 1 Each PO DAILY Imodium A-D (Loperamide Hcl) 1 Mg/7.5 Ml Liquid 2 Mg PO PRN DAILY PRN Pacerone (Amiodarone Hcl) 200 Mg Tablet 200 Mg PO BID Atorvastatin Calcium 20 Mg Tablet 20 Mg PO DAILY Hydrochlorothiazide Tablet (Hydrochlorothiazide) 12.5 Mg Tablet 12.5 Mg PO DAILY Coumadin (Warfarin Sodium) 5 Mg Tablet 5 Mg PO DAILY Carafate (Sucralfate) 1 Gm Tablet 1 Gm PO [id number] Prilosec (Omeprazole) 20 Mg Capsule.dr 20 Mg PO BIDBFRMEAL Cozaar (Losartan Potassium) 100 Mg Tablet 100 Mg PO DAILY Ativan (Lorazepam) 0.5 Mg Tablet 0.5 Mg PO PRN Q8HRS PRN Atrovent (Ipratropium [place]) 15 Ml [place] 42 NS PRN DAILY Claritin (Loratadine) 10 Mg Tablet 10 Mg PO DAILY Aspirin 81 Mg Tab.chew 81 Mg PO DAILY Norvasc (Amlodipine Besylate) 5 Mg Tablet 5 Mg PO BID ALLERGIES Allergies: Coded Allergies: No Known Drug Allergies (Unverified , 08/05/20) ROS Review of Systems 14 point ROS conducted with pertinent positives noted above in HPI PHYSICAL EXAM General: Alert, Oriented X3, Cooperative, No acute distress HEENT: Atraumatic, Mucous membr. moist/pink Lungs: Other (NC) Heart: Other (AFIB, rate controlled ) Extremities: No edema, Normal pulses Skin: No breakdown Neuro: Normal speech, Sensation intact Psych/Mental Status: Mental status NL, Mood NL MUSCULOSKELETAL: Osteoarthritic changes both hands VITALS Vital Signs Vital Signs Date Time Temp Pulse Resp B/P (MAP) Pulse Ox O2 Delivery O2 Flow Rate FiO2 08/07/20 06:00 97.4 85 16 111/59 (76) 93 Nasal Cannula 3.0 LABS LABS Laboratory Tests Test 08/05/20 15:21 08/05/20 15:22 08/05/20 15:44 08/05/20 21:15 White Blood Count 6.6 x10^3/uL (4.0-11.0) Red Blood Count 4.66 x10^6/uL (3.50-5.40) Hemoglobin 13.5 g/dL (12.0-15.5) Hematocrit 41.6 % (36.0-47.0) Mean Corpuscular Volume 89 fL (79-100) Mean Corpuscular Hemoglobin 29 pg (25-35) Mean Corpuscular Hemoglobin Concent 32 g/dL (31-37) Red Cell Distribution Width 14.1 % (11.5-14.5) Platelet Count 213 x10^3/uL (140-400) Neutrophils (%) (Auto) 84 % (31-73) Lymphocytes (%) (Auto) 9 % (24-48) Monocytes (%) (Auto) 8 % (0-9) Eosinophils (%) (Auto) 0 % (0-3) Basophils (%) (Auto) 0 % (0-3) Neutrophils # (Auto) 5.5 x10^3uL (1.8-7.7) Lymphocytes # (Auto) 0.6 x10^3/uL (1.0-4.8) Monocytes # (Auto) 0.5 x10^3/uL (0.0-1.1) Eosinophils # (Auto) 0.0 x10^3/uL (0.0-0.7) Basophils # (Auto) 0.0 x10^3/uL (0.0-0.2) Prothrombin Time 44.7 SEC (9.4-11.4) Prothromb Time International Ratio 4.6 (0.9-1.1) Activated Partial Thromboplast Time 50 SEC (23-33) Sodium Level 131 mmol/L (136-145) Potassium Level 3.3 mmol/L (3.5-5.1) Chloride Level 96 mmol/L (98-107) Carbon Dioxide Level 27 mmol/L (21-32) Anion Gap 8 (6-14) Blood Urea Nitrogen 29 mg/dL (7-20) Creatinine 0.9 mg/dL (0.6-1.0) Estimated GFR (Cockcroft-Gault) 60.4 Glucose Level 106 mg/dL (70-99) Lactic Acid Level 1.3 mmol/L (0.4-2.0) Calcium Level 8.5 mg/dL (8.5-10.1) Creatine Kinase 116 U/L (26-192) Troponin I Quantitative < 0.017 ng/mL (0-0.055) < 0.017 ng/mL (0-0.055) VB-Hat-G-Type Natriuretic Peptide 1794 pg/mL (0-449) Influenza Type A (Rapid) Negative (NEGATIVE) Influenza Type B (Rapid) Negative (NEGATIVE) Coronavirus (PCR) Detected (Not Detected) Test 08/05/20 23:30 12 15:30 08/07/20 05:30 Urine Collection Type Unknown Urine Color Yellow Urine Clarity Clear Urine pH 6.0 Urine Specific [place] >=1.030 Urine Protein 30 mg/dl (NEG-TRACE) Urine Glucose (UA) Neg mg/dL (NEG) Urine Ketones (Stick) 15 mg/dL (NEG) Urine Blood Neg (NEG) Urine Nitrite Neg (NEG) Urine Bilirubin Neg (NEG) Urine Urobilinogen Dipstick 1.0 mg/dL (0.2 mg/dL) Urine Leukocyte Esterase Trace (NEG) Urine RBC 0 /HPF (0-2) Urine WBC 5-10 /HPF (0-4) Urine Squamous Epithelial Cells Occ /LPF Urine Bacteria Few /HPF (0-FEW) Troponin I Quantitative < 0.017 ng/mL (0-0.055) Prothrombin Time 40.9 SEC (9.4-11.4) Prothromb Time International Ratio 4.2 (0.9-1.1) Sodium Level 136 mmol/L (136-145) Potassium Level 4.0 mmol/L (3.5-5.1) Chloride Level 101 mmol/L (98-107) Carbon Dioxide Level 25 mmol/L (21-32) Anion Gap 10 (6-14) Blood Urea Nitrogen 28 mg/dL (7-20) Creatinine 1.0 mg/dL (0.6-1.0) Estimated GFR (Cockcroft-Gault) 53.5 BUN/Creatinine Ratio 28 (6-20) Glucose Level 123 mg/dL (70-99) Calcium Level 8.8 mg/dL (8.5-10.1) Total Bilirubin 0.6 mg/dL (0.2-1.0) Aspartate Amino Transf (AST/SGOT) 39 U/L (15-37) Alanine Aminotransferase (ALT/SGPT) 24 U/L (14-59) Alkaline Phosphatase 108 U/L (46-116) FT-Dnx-P-Type Natriuretic Peptide 2162 pg/mL (0-449) Total Protein 7.2 g/dL (6.4-8.2) Albumin 2.3 g/dL (3.4-5.0) Albumin/Globulin Ratio 0.5 (1.0-1.7) ECHOCARDIOGRAM Echocardiogram 06/24/20 - LIMITED ECHO Qualitatively normal LV size and systolic function, EF ~ 65%. Diastolic function not assessed No regional wall motion abnormalities Qualitatively normal RV size and function Qualitatively moderate to severe biatrial enlargement Mitral annular calcification without stenosis. Regurgitation not assessed Mild aortic sclerosis without stenosis. There is a loss of effacement of the normal sinotubular junction contour. The aortic dimensions are qualitatively within normal limits. No pericardial effusion Compared with the prior resting portion of the exercise echo/Doppler study on 07-04-19, there have been no significant interval changes in 2D only structure or function. ASSESSMENT/PLAN Assessment/Plan 1. Acute respiratory failure secondary to COVID 2. Paroxysmal AFIB; s/p previous CV. Back in AFIB. Is scheduled for outpatient CV next week with [facility]. Recent echo with preserved LV systolic function 3. H/o sinus bradycardia; prevented aggressive use of AV marilee blocking agents in past 4. S/p LAAO with Watchman; 06/23/20. Still on warfarin therapy. INR supratherapeutic upon arrival 5. H/o GIB 6. Hypertension; low end 7. Hyperlipidemia; statin Recommendations Continue Amiodarone therapy Will add low-dose metoprolol for rate control. Monitor for bradycardia. Hold losartan, amlodipine with low end BP Warfarin on hold with coagulopathy Ongoing lung optimization, treatment of COVID Follow up with [facility] upon discharge VIOLETA BREWSTER APRN Aug 07, 2020 07:37
[2020-08-07 08:11] LABS: HEMATOCRIT 46.4 % (36.0-47.0); HEMOGLOBIN 14.7 g/dL (12.0-15.5); RED BLOOD COUNT 5.12 x10^6/uL (3.50-5.40); RED CELL DISTRIBUTION WIDTH 14.4 % (11.5-14.5); WHITE BLOOD COUNT 4.5 x10^3/uL (4.0-11.0)
[2020-08-07] MEDS: POTASSIUM CHLORIDE 20 MEQ TABLET.ER. PO SCH (08:35)
[2020-08-07] MEDS: ASPIRIN CHEWABLE 81 MG TABLET. PO SCH (08:35)
[2020-08-07] MEDS: PANTOPRAZOLE 40 MG TABLET. PO SCH (08:36)
[2020-08-07] MEDS: LACTOBACILLUS RHAMNOSUS GG 1 CAPSULE. PO SCH ×2 (08:36→20:20)
[2020-08-07] MEDS: ATORVASTATIN CALCIUM 20 MG TABLET PO SCH (08:36)
[2020-08-07] MEDS: AMIODARONE HCL 200 MG TABLET. PO SCH ×2 (08:36→20:21)
[2020-08-07] MEDS: DEXAMETHASONE SOD PHOS 10 MG/ML VIAL. IV SCH (08:36)
[2020-08-07] MEDS: CETIRIZINE HCL 10 MG TABLET PO SCH (08:37)
[2020-08-07] MEDS ORDERED: REMDESIVIR LOAD in IV NORMAL SALINE 250ML TV IV ONE (09:00)
[2020-08-07] MEDS: METOPROLOL TART IMMED RELEASE 25 MG TABLET. PO SCH ×2 (10:19→20:20)
[2020-08-07 11:00] VITALS: BP 104/52
[2020-08-07] MEDS: LOPERAMIDE 2 MG/15 ML ORAL SUSP. PO PRN (12:30)
[2020-08-07] MEDS ORDERED: PHYTONADIONE 10 MG/ML AMPUL. SQ ONE (16:15)
[2020-08-07] MEDS: AZITHROMYCIN 500 MG in IV NORMAL SALINE 250ML 250 ML IV SCH (17:27)
[2020-08-07] MEDS ORDERED: ACETAMINOPHEN/CODEINE 300/30MG TABLET PO PRN (18:00)
[2020-08-07 20:00] VITALS: BP 116/64
[2020-08-07] MEDS: ALBUTEROL SULFATE 8GM INHALER. INH PRN (20:20)
[2020-08-07] MEDS: BENZONATATE 100 MG CAPSULE. PO SCH (20:20)
[2020-08-07] MEDS: IPRATROPIUM/ALBUTEROL 20/100mcg/INH INHALER. INH SCH (20:20)
--- NOTE | 2020-08-07 21:33 | PN ---
DATE: 08/07/2020 SUBJECTIVE: The patient is resting, slightly propped up in bed, in no apparent respiratory distress. She denied any chest pain or shortness of breath. She continued to have cough with scanty whitish sputum with occasional flecks of yellowish color. Denied any hemoptysis. Denied any hematemesis, melena, or hematochezia. PHYSICAL EXAMINATION: GENERAL: When I examined her, she looked well and was clearly in no apparent respiratory distress. No pallor, jaundice, cyanosis or thyromegaly. No jugular venous distention. No limb edema. VITAL SIGNS: Her heart rate was 78, blood pressure was 104/52, temperature 97.2, respiratory rate was 16, and oxygen saturation was 94% on 3 liters of oxygen. HEAD, EYES, EARS, NOSE AND THROAT: Showed normocephalic, atraumatic. NECK: Supple. HEART: Showed normal first and second heart sounds. No gallop, rub or murmur. CHEST: Clear to auscultation. No crepitation or rhonchi. ABDOMEN: Scaphoid, soft, nontender. NEUROLOGIC: She is very hard of hearing, but otherwise all cranial nerves are intact. She moves extremities without difficulty. Her intake over the last 24 hours was incompletely recorded. LABORATORY DATA: Her lab work this morning showed a white cell count 4500, hemoglobin 14.7, hematocrit 46, MCV 91, and platelet count 247,000. Her serum sodium was 136, potassium 4, chloride 101, bicarbonate 25, anion gap of 10, BUN 28, creatinine 1, estimated GFR was 53 mL per minute. Her glucose was 123, calcium was 8.8. Total bilirubin, ALT, alkaline phosphatase normal. AST slightly elevated. Her beta natriuretic peptide was 2162. Total protein 7.2, albumin was 2.3. Her prothrombin time was 67.7, INR of 6.5. Urinalysis was essentially unremarkable and unfortunately, her coronavirus-2 PCR was detectable. Her influenza A and B were negative. ASSESSMENT: 1. COVID-19 pneumonia versus community-acquired pneumonia. 2. Acute hypoxic respiratory failure. 3. Chronic atrial fibrillation with rapid ventricular response. She has hyponatremia and hypokalemia that has resolved. Her serum sodium is up to 136, potassium 4, Coumadin-induced coagulopathy. Coumadin is on hold. However, after we started her on IV antibiotic, her INR has risen further, so we will treat her with 2 mg of vitamin K, apparently the patient is scheduled for outpatient cardioversion next week, has had a Watchman placed last month; however, she continues to be on Coumadin. PLAN: Obviously to continue holding Coumadin. Continue with Combivent Respimat 1 puff for 4 times a day. Continue with metoprolol 12.5 mg twice a day. Continue with antibiotic in the form of ceftriaxone as well as azithromycin. Continue with dexamethasone. Continue with remdesivir. PAR[place] LEE MD DR: RUDI/yancy JOB#: [id number] / [id number]
[2020-08-07 23:00] VITALS: BP 119/62
[2020-08-08] MEDS: SUCRALFATE 1 GM TABLET. PO SCH ×4 (04:51→23:05)
[2020-08-08 05:53] VITALS: BP 114/56
[2020-08-08 06:31] LABS: HEMATOCRIT 41.8 % (36.0-47.0); HEMOGLOBIN 13.3 g/dL (12.0-15.5); RED BLOOD COUNT 4.65 x10^6/uL (3.50-5.40); WHITE BLOOD COUNT 11.8 x10^3/uL (4.0-11.0)
[2020-08-08 07:25] LABS: ALBUMIN/GLOBULIN RATIO 0.5 (1.0-1.7); CALCIUM 8.4 mg/dL (8.5-10.1); GFR 53.5; POTASSIUM 4.2 mmol/L (3.5-5.1); TOTAL BILIRUBIN 0.3 mg/dL (0.2-1.0); TOTAL PROTEIN 6.1 g/dL (6.4-8.2)
[2020-08-08] MEDS: ATORVASTATIN CALCIUM 20 MG TABLET PO SCH (08:32)
[2020-08-08] MEDS: METOPROLOL TART IMMED RELEASE 25 MG TABLET. PO SCH ×2 (08:32→20:18)
[2020-08-08] MEDS: LACTOBACILLUS RHAMNOSUS GG 1 CAPSULE. PO SCH ×2 (08:32→20:16)
[2020-08-08] MEDS: AMIODARONE HCL 200 MG TABLET. PO SCH ×2 (08:33→20:17)
[2020-08-08] MEDS: PANTOPRAZOLE 40 MG TABLET. PO SCH (08:33)
[2020-08-08] MEDS: CETIRIZINE HCL 10 MG TABLET PO SCH (08:33)
[2020-08-08] MEDS: ASPIRIN CHEWABLE 81 MG TABLET. PO SCH (08:33)
[2020-08-08] MEDS: DEXAMETHASONE SOD PHOS 10 MG/ML VIAL. IV SCH (08:33)
[2020-08-08] MEDS: BENZONATATE 100 MG CAPSULE. PO SCH ×3 (08:33→20:16)
[2020-08-08] MEDS: IPRATROPIUM/ALBUTEROL 20/100mcg/INH INHALER. INH SCH ×4 (08:34→20:16)
[2020-08-08] MEDS: POTASSIUM CHLORIDE 20 MEQ TABLET.ER. PO SCH (08:34)
[2020-08-08] MEDS: REMDESIVIR 100mg in NORMAL SALINE 250ML X 4 DAYS IV SCH (09:51)
[2020-08-08 11:00] VITALS: BP 95/42
[2020-08-08] MEDS: LOPERAMIDE 2 MG/15 ML ORAL SUSP. PO PRN (12:30)
[2020-08-08] MEDS ORDERED: PHYTONADIONE 10 MG/ML AMPUL. SQ ONE (16:00)
[2020-08-08 16:22] VITALS: BP 111/49
[2020-08-08] MEDS: AZITHROMYCIN 500 MG in IV NORMAL SALINE 250ML 250 ML IV SCH (16:46)
--- NOTE | 2020-08-08 18:48 | PDOC ---
DATE OF SERVICE: DOS: DATE: 08/08/20 TIME: 18:44 SUBJECTIVE: Patient seen and evaluated. OBJECTIVE: Problems: Problems Medical Problems: (1) Atrial fibrillation Status: Acute (2) Hypoxia Status: Acute (3) Person under investigation for COVID-19 Status: Acute (4) Pneumonia Status: Acute (5) Warfarin anticoagulation Status: Acute Acute respiratory failure secondary to COVID. Continuing baseline COVID treatment. Paroxysmal AFIB; s/p previous CV. Back in AFIB. Is scheduled for outpatient CV next week with [facility]. Recent echo with preserved LV systolic function H/o sinus bradycardia; Rate OK on low dose beta jhonatan. S/p LAAO with Watchman; 06/23/20. Still on warfarin therapy. INR supratherapeutic upon arrival. Adjust warfarin as per lab results. H/o GIB Hypertension; improved. Hyperlipidemia; statin Vital Signs/I&O: Vital Signs Date Time Temp Pulse Resp B/P (MAP) Pulse Ox O2 Delivery O2 Flow Rate FiO2 08/08/20 16:22 96.5 85 26 111/49 (69) 94 Nasal Cannula 4.0 I & O 08/07/20 08/07/20 08/08/20 15:00 23:00 07:00 Intake Total 490 ml 760 ml 200 ml Output Total 1 ml Balance 489 ml 760 ml 200 ml Labs: Laboratory Tests Test 08/08/20 05:05 08/08/20 14:00 White Blood Count 11.8 x10^3/uL (4.0-11.0) H Red Blood Count 4.65 x10^6/uL (3.50-5.40) Hemoglobin 13.3 g/dL (12.0-15.5) Hematocrit 41.8 % (36.0-47.0) Mean Corpuscular Volume 90 fL (79-100) Mean Corpuscular Hemoglobin 29 pg (25-35) Mean Corpuscular Hemoglobin Concent 32 g/dL (31-37) Red Cell Distribution Width 14.0 % (11.5-14.5) Platelet Count 301 x10^3/uL (140-400) Sodium Level 138 mmol/L (136-145) Potassium Level 4.2 mmol/L (3.5-5.1) Chloride Level 103 mmol/L (98-107) Carbon Dioxide Level 26 mmol/L (21-32) Anion Gap 9 (6-14) Blood Urea Nitrogen 38 mg/dL (7-20) H Creatinine 1.0 mg/dL (0.6-1.0) Estimated GFR (Cockcroft-Gault) 53.5 BUN/Creatinine Ratio 38 (6-20) H Glucose Level 125 mg/dL (70-99) H Calcium Level 8.4 mg/dL (8.5-10.1) L Total Bilirubin 0.3 mg/dL (0.2-1.0) Aspartate Amino Transferase (AST) 34 U/L (15-37) Alanine Aminotransferase (ALT) 21 U/L (14-59) Alkaline Phosphatase 87 U/L (46-116) Total Protein 6.1 g/dL (6.4-8.2) L Albumin 2.0 g/dL (3.4-5.0) L Albumin/Globulin Ratio 0.5 (1.0-1.7) L Prothrombin Time 67.3 SEC (9.4-11.4) H Prothrombin Time INR 6.5 (0.9-1.1) *H Justification of Admission: Justification of Admission: Justification of Admission Dx: Yes Respiratory Failure: Severe Resp Distress JAYRO YU MD Aug 08, 2020 18:48
[2020-08-08 19:20] VITALS: BP 107/57
[2020-08-08] MEDS ORDERED: traZODone 50 MG TABLET. PO PRN (20:30)
--- NOTE | 2020-08-08 21:36 | PN ---
DATE: 08/08/2020 SUBJECTIVE: The patient is resting slightly propped up in bed, no apparent distress. She continued to complain of cough, which is mostly productive. Denied any chest pain, denied any orthopnea or paroxysmal nocturnal dyspnea. Did complain of insomnia and said she could not sleep last night. PHYSICAL EXAMINATION: GENERAL: When I saw her this morning, she was somewhat cachectic, but no jaundice, cyanosis or thyromegaly. No jugular venous distention or limb edema. VITAL SIGNS: Her heart rate was 79, blood pressure was 95/42, temperature was 98.4, respiratory rate was 19 and oxygen saturation was 94% on 4 liters of oxygen. HEAD, EYES, EARS, NOSE, AND THROAT: Showed normocephalic, atraumatic. NECK: Supple. HEART: Normal first and second sounds. No gallop, rub or murmur. CHEST: Shows central trachea, equally reduced expansion, reduced air entry with bilateral basal crepitation. Posteriorly, I could not appreciate any rhonchi. ABDOMEN: Scaphoid, soft, nontender. NEUROLOGIC: She is somewhat hard of hearing, but otherwise all her cranial nerves are intact. She moves extremities without difficulty. She ambulates without assistance or assistive devices. Her intake was 1670, output was 350. LABORATORY DATA: As of this morning, her white cell count was 11,800, hemoglobin 13, hematocrit 41, MCV 90, and platelet count 301,000. Her chemistry showed a serum sodium of 138, potassium 4.3, chloride 103, bicarbonate 26, anion gap of 9, BUN 38, creatinine 1, estimated GFR was 53 mL per minute. Her glucose 125, calcium was 8.4. Total bilirubin, AST, ALT, alkaline phosphatase were normal. Total protein was 6.1, albumin was 2. Her prothrombin time and INR still pending at the time of this dictation. Her coronavirus by PCR was detectable; however, influenza A and B were negative. ASSESSMENT: 1. COVID-19 pneumonia. 2. Acute hypoxic respiratory failure. 3. The patient has multiple other medical problems including chronic atrial fibrillation with rapid ventricular response, rate much better controlled now, hypertension, gastroesophageal reflux disease as well as gout. PLAN: To continue with current plan of management. I will continue obviously with ceftriaxone and Zithromax. Continue with remdesivir, dexamethasone, continue with all her other medications. I did order stat PT/INR to make sure that her INR is within therapeutic range. She did have Coumadin-induced coagulopathy and we gave her 2 mg of vitamin K yesterday. [place] L[place] MD DR: RUDI/yancy JOB#: [id number] / [id number]
[2020-08-08 23:00] VITALS: BP 111/66
[2020-08-09 05:20] VITALS: BP 114/52
[2020-08-09] MEDS: SUCRALFATE 1 GM TABLET. PO SCH ×3 (05:34→18:21)
[2020-08-09 06:12] LABS: BASO % 0 % (0-3); EOS % 0 % (0-3); HEMOGLOBIN 12.7 g/dL (12.0-15.5); LYMPH % 8 % (24-48); MEAN CORPUSCULAR HEMOGLOBIN 29 pg (25-35); MEAN CORPUSCULAR HGB CONC 32 g/dL (31-37); MEAN CORPUSCULAR VOLUME 90 fL (79-100); MONO # 0.7 x10^3/uL (0.0-1.1); MONO % 6 % (0-9); NEUT % 86 % (31-73); PLATELET COUNT 321 x10^3/uL (140-400); RED BLOOD COUNT 4.45 x10^6/uL (3.50-5.40); RED CELL DISTRIBUTION WIDTH 14.5 % (11.5-14.5); WHITE BLOOD COUNT 11.7 x10^3/uL (4.0-11.0)
[2020-08-09 06:22] LABS: CALCIUM 7.9 mg/dL (8.5-10.1); GFR 53.5; POTASSIUM 4.1 mmol/L (3.5-5.1)
[2020-08-09] MEDS: IPRATROPIUM/ALBUTEROL 20/100mcg/INH INHALER. INH SCH ×4 (08:00→20:00)
[2020-08-09] MEDS: POTASSIUM CHLORIDE 20 MEQ TABLET.ER. PO SCH (09:00)
[2020-08-09] MEDS: REMDESIVIR 100mg in NORMAL SALINE 250ML X 4 DAYS IV SCH (09:00)
[2020-08-09] MEDS: METOPROLOL TART IMMED RELEASE 25 MG TABLET. PO SCH ×2 (09:07→21:00)
[2020-08-09] MEDS: LACTOBACILLUS RHAMNOSUS GG 1 CAPSULE. PO SCH ×2 (09:07→21:56)
[2020-08-09] MEDS: ASPIRIN CHEWABLE 81 MG TABLET. PO SCH (09:07)
[2020-08-09] MEDS: PANTOPRAZOLE 40 MG TABLET. PO SCH (09:07)
[2020-08-09] MEDS: ATORVASTATIN CALCIUM 20 MG TABLET PO SCH (09:07)
[2020-08-09] MEDS: BENZONATATE 100 MG CAPSULE. PO SCH ×3 (09:08→21:57)
[2020-08-09] MEDS: CETIRIZINE HCL 10 MG TABLET PO SCH (09:08)
[2020-08-09] MEDS: AMIODARONE HCL 200 MG TABLET. PO SCH ×2 (09:08→21:56)
[2020-08-09] MEDS: DEXAMETHASONE SOD PHOS 10 MG/ML VIAL. IV SCH (09:09)
[2020-08-09] MEDS: NON FORMULARY ITEM PO SCH (09:16)
[2020-08-09] MEDS: LOPERAMIDE 2 MG/15 ML ORAL SUSP. PO PRN (09:24)
[2020-08-09 10:43] VITALS: BP 94/40
[2020-08-09 10:46] VITALS: BP 104/49
[2020-08-09 14:46] VITALS: BP 110/54
[2020-08-09] MEDS: AZITHROMYCIN 500 MG in IV NORMAL SALINE 250ML 250 ML IV SCH (18:21)
[2020-08-09 19:00] VITALS: BP 103/53
--- NOTE | 2020-08-09 21:49 | PN ---
DATE: 08/09/2020 SUBJECTIVE: The patient is resting, slightly propped up in bed, in no apparent distress. She denied any chest pain or shortness of breath. She continued to have cough with scanty whitish sputum. She did sleep last night. Her oxygen requirement is down to 3 liters, maintaining her oxygen saturation at 94%. PHYSICAL EXAMINATION: GENERAL: When I examined her, she looked pale, no jaundice, cyanosis or thyromegaly. No jugular venous distention. No limb edema. VITAL SIGNS: Her heart rate was 75, blood pressure was 104/49, temperature 97.5, respiratory rate was 16, and oxygen saturation was 94% on 3 liters of oxygen. HEAD, EYES, EARS, NOSE AND THROAT: Showed normocephalic, atraumatic. NECK: Supple. CARDIAC: Normal first and second heart sounds. No gallop, rub or murmur. CHEST: Clear to auscultation. No crepitation or rhonchi. ABDOMEN: Distended, soft, nontender. NEUROLOGIC: She was awake, alert, responding appropriately. All cranial nerves intact. She moves extremities without difficulty. Her intake over the last 24 hours was 1450. No output was recorded. LABORATORY DATA: Her lab work this morning showed a white cell count of 11,700, hemoglobin 13, hematocrit 40, MCV 90 and platelet count of 321,000. Her chemistry showed a serum sodium 141, potassium 4.1, chloride 109, bicarbonate 26, anion gap of 6, BUN 33, creatinine 1, estimated GFR was 54 mL per minute. Her glucose was 94, calcium was 7.9. Her prothrombin time was __, INR of 5.2. Her coronavirus by PCR was detectable. Her urine culture has shown no growth and her blood cultures were so far negative after 3 days. ASSESSMENT: 1. COVID-19 pneumonia. 2. Acute hypoxic respiratory failure. 3. The patient has multiple other medical problems including: A. Chronic atrial fibrillation with rapid ventricular response, rate much better controlled now. B. Hypertension. C. Gastroesophageal reflux disease. D. Gout. PLAN: To continue with Remdesivir. Continue with IV antibiotic. Continue with dexamethasone. Continue with all other medications including the amiodarone and metoprolol to control the heart rate. I did start her on trazodone for insomnia. PAR[place] LEE MD DR: Nolan JOB#: [id number] / [id number]
[2020-08-09 23:16] VITALS: BP 122/67
[2020-08-10] MEDS: LOPERAMIDE 2 MG/15 ML ORAL SUSP. PO PRN ×3 (01:09→12:53)
[2020-08-10 06:22] VITALS: BP 116/59
[2020-08-10] MEDS: AMIODARONE HCL 200 MG TABLET. PO SCH ×2 (09:04→20:12)
[2020-08-10] MEDS: BENZONATATE 100 MG CAPSULE. PO SCH ×3 (09:04→20:30)
[2020-08-10] MEDS: CETIRIZINE HCL 10 MG TABLET PO SCH (09:04)
[2020-08-10] MEDS: SUCRALFATE 1 GM TABLET. PO SCH ×4 (09:04→17:21)
[2020-08-10] MEDS: PANTOPRAZOLE 40 MG TABLET. PO SCH (09:05)
[2020-08-10] MEDS: ATORVASTATIN CALCIUM 20 MG TABLET PO SCH (09:05)
[2020-08-10] MEDS: LACTOBACILLUS RHAMNOSUS GG 1 CAPSULE. PO SCH ×2 (09:05→20:30)
[2020-08-10] MEDS: ASPIRIN CHEWABLE 81 MG TABLET. PO SCH (09:05)
[2020-08-10] MEDS: DEXAMETHASONE SOD PHOS 10 MG/ML VIAL. IV SCH (09:05)
[2020-08-10] MEDS: METOPROLOL TART IMMED RELEASE 25 MG TABLET. PO SCH ×2 (09:06→20:11)
[2020-08-10] MEDS: ALBUTEROL SULFATE 8GM INHALER. INH PRN (09:06)
[2020-08-10] MEDS: IPRATROPIUM/ALBUTEROL 20/100mcg/INH INHALER. INH SCH ×4 (09:06→20:30)
[2020-08-10] MEDS: NON FORMULARY ITEM PO SCH (09:06)
[2020-08-10] MEDS: POTASSIUM CHLORIDE 20 MEQ TABLET.ER. PO SCH (09:08)
[2020-08-10] MEDS: REMDESIVIR 100mg in NORMAL SALINE 250ML X 4 DAYS IV SCH (09:11)
[2020-08-10 10:59] VITALS: BP 102/57
[2020-08-10 15:00] VITALS: BP 92/58
[2020-08-10] MEDS: AZITHROMYCIN 500 MG in IV NORMAL SALINE 250ML 250 ML IV SCH (17:19)
--- NOTE | 2020-08-10 20:28 | PN ---
DATE: 08/10/2020 SUBJECTIVE: The patient is resting, slightly propped up in bed, in no apparent distress. On questioning her, she denied any complaints. Her cough is much less and she is now on 2 liters of oxygen, maintaining her oxygen saturation at 94%. Nursing staff did not voice any concerns that she had an uneventful night. PHYSICAL EXAMINATION: GENERAL: When I examined her, she looked pale, but no jaundice, cyanosis or thyromegaly. No jugular venous distention or limb edema. VITAL SIGNS: Her heart rate was 67, blood pressure was 102/57, temperature was 97.3, respiratory rate 20, and oxygen saturation was 94% on 2 liters of oxygen. HEAD, EYES, EARS, NOSE AND THROAT: Showed normocephalic, atraumatic. NECK: Supple. HEART: Showed normal first and second heart sounds. No gallop, rub or murmur. CHEST: Showed central trachea, equal bilateral expansion, air entry expands with crepitation mostly in the left side posteriorly. I could not appreciate any rhonchi. ABDOMEN: Scaphoid, soft, nontender. NEUROLOGIC: She is hard of hearing, but otherwise all her cranial nerves are intact. She moves extremities without difficulty. She ambulates without assistance or assistive devices. Her intake over the last 24 hours was 416, no output was reported. LABORATORY DATA: Her white cell count as of yesterday was 11,700; hemoglobin 13, hematocrit 40, MCV 90 and platelet count of 321,000. Her chemistry showed a serum sodium 141, potassium 4.1, chloride 109, bicarbonate 26, anion gap of 6, BUN 33, creatinine 1, estimated GFR was 53 mL per minute. Her glucose was 94 and calcium was 7.9. Total bilirubin, AST, ALT, alkaline phosphatase were normal. Total protein 6.1, albumin 2. Her coronavirus obviously is detectable. Urinalysis was mostly unremarkable and her prothrombin time as of yesterday was 50.6, INR of 5.2. ASSESSMENT: 1. COVID-19 pneumonia. 2. Acute hypoxic respiratory failure, slowly improving. 3. The patient has multiple other medical problems including: A. Chronic atrial fibrillation with rapid ventricular response, rate much better controlled. B. Coumadin-induced coagulopathy. Her INR as of yesterday was 5.4. C. Hypertension. B. Gastroesophageal reflux disease. E. Gout. PLAN: To continue with IV antibiotic. Continue with remdesivir. Continue with dexamethasone as well as continue to hold her Coumadin. She continued to be on amiodarone, metoprolol and her heart rate is well controlled. She was started on trazodone for insomnia with good effect. [place] LEE MD DR: RUDI/yancy JOB#: [id number] / [id number]
[2020-08-10 20:38] VITALS: BP 100/48
[2020-08-11] MEDS: SUCRALFATE 1 GM TABLET. PO SCH ×4 (00:47→17:13)
[2020-08-11 07:28] LABS: HEMATOCRIT 37.6 % (36.0-47.0); RED BLOOD COUNT 4.17 x10^6/uL (3.50-5.40); RED CELL DISTRIBUTION WIDTH 14.4 % (11.5-14.5); WHITE BLOOD COUNT 10.9 x10^3/uL (4.0-11.0)
[2020-08-11 07:43] LABS: ALBUMIN 1.8 g/dL (3.4-5.0); ALBUMIN/GLOBULIN RATIO 0.5 (1.0-1.7); CREATININE 1.1 mg/dL (0.6-1.0); GFR 47.9; POTASSIUM 3.6 mmol/L (3.5-5.1); TOTAL BILIRUBIN 0.3 mg/dL (0.2-1.0); TOTAL PROTEIN 5.2 g/dL (6.4-8.2)
[2020-08-11] MEDS: ALBUTEROL SULFATE 8GM INHALER. INH PRN (09:18)
[2020-08-11] MEDS: AMIODARONE HCL 200 MG TABLET. PO SCH ×2 (09:19→20:34)
[2020-08-11] MEDS: BENZONATATE 100 MG CAPSULE. PO SCH ×3 (09:19→20:34)
[2020-08-11] MEDS: LACTOBACILLUS RHAMNOSUS GG 1 CAPSULE. PO SCH ×2 (09:19→20:34)
[2020-08-11] MEDS: POTASSIUM CHLORIDE 20 MEQ TABLET.ER. PO SCH (09:20)
[2020-08-11] MEDS: PANTOPRAZOLE 40 MG TABLET. PO SCH (09:20)
[2020-08-11] MEDS: METOPROLOL TART IMMED RELEASE 25 MG TABLET. PO SCH ×2 (09:20→19:54)
[2020-08-11] MEDS: CETIRIZINE HCL 10 MG TABLET PO SCH (09:20)
[2020-08-11] MEDS: DEXAMETHASONE SOD PHOS 10 MG/ML VIAL. IV SCH (09:21)
[2020-08-11] MEDS: NON FORMULARY ITEM PO SCH (09:21)
[2020-08-11] MEDS: ATORVASTATIN CALCIUM 20 MG TABLET PO SCH (09:24)
[2020-08-11] MEDS: ASPIRIN CHEWABLE 81 MG TABLET. PO SCH (09:24)
[2020-08-11] MEDS: REMDESIVIR 100mg in NORMAL SALINE 250ML X 4 DAYS IV SCH (09:24)
[2020-08-11] MEDS: IPRATROPIUM/ALBUTEROL 20/100mcg/INH INHALER. INH SCH ×4 (09:25→20:18)
[2020-08-11 10:45] VITALS: BP 100/57
[2020-08-11 14:57] VITALS: BP 101/56
[2020-08-11] MEDS ORDERED: WARFARIN 4 MG TABLET. PO SCH (16:00)
[2020-08-11] MEDS: AZITHROMYCIN 500 MG in IV NORMAL SALINE 250ML 250 ML IV SCH (17:15)
--- NOTE | 2020-08-11 18:50 | PN ---
DATE: 08/11/2020 SUBJECTIVE: The patient is sitting comfortably in her chair, in no apparent distress. She is maintaining her oxygen saturation at 95-96% on room air. Her cough is much less now. Denied any shortness of breath. PHYSICAL EXAMINATION: GENERAL: When I examined her, she was pale, somewhat cachectic, but no jaundice, cyanosis or thyromegaly. No jugular venous distention or limb edema. VITAL SIGNS: Her heart rate was 78, blood pressure was 100/60, temperature 97.8, respiratory rate 20, and oxygen saturation was 97% on room air. HEAD: Showed normocephalic, atraumatic. NECK: Supple. HEART: Normal first and second heart sounds. No gallop, rub or murmur. CHEST: Clear to auscultation. No crepitation or rhonchi. ABDOMEN: Scaphoid, soft, nontender. NEUROLOGIC: She was grossly intact. Her intake was 1700, no output was recorded. LABORATORY DATA: Her lab work this morning showed a white cell count of 10,900, hemoglobin 12, hematocrit 38, MCV 90 and platelet count 313,000. Her chemistry showed a serum sodium 142, potassium 3.6, chloride 110, bicarbonate 25, anion gap of 7, BUN 34, creatinine 1.1, estimated GFR was 48 mL per minute. Her glucose was 86, calcium was 8. Total bilirubin, AST, ALT, alkaline phosphatase were normal. Total protein 5.2, albumin was 1.8. Her prothrombin time was 21.7, INR of 2.2. Urinalysis was essentially unremarkable. ASSESSMENT: 1. COVID-19 pneumonia. 2. Acute hypoxic respiratory failure, slowly improving. 3. The patient has multiple other medical problems including: A. Chronic atrial fibrillation with rapid ventricular response, rate much better controlled. B. Coumadin-induced coagulopathy. Her INR is down to 2.2. C. Hypertension. D. Gastroesophageal reflux disease. E. Gout. PLAN: To continue with IV antibiotic. Continue with all other medication. I will continue amiodarone and metoprolol to control the heart rate. I will resume her Coumadin and hopefully she will be discharged home tomorrow. PARISH LEE MD DR: RUDI/yancy JOB#: [id number] / [id number]
[2020-08-11 19:58] VITALS: BP 93/43
[2020-08-11] MEDS: LOPERAMIDE 2 MG/15 ML ORAL SUSP. PO PRN (20:34)
[2020-08-11 23:33] VITALS: BP 98/52
[2020-08-12] MEDS: SUCRALFATE 1 GM TABLET. PO SCH ×3 (00:15→12:29)
[2020-08-12 05:28] VITALS: BP 113/67
[2020-08-12 07:27] LABS: CALCIUM 8.1 mg/dL (8.5-10.1); CREATININE 0.9 mg/dL (0.6-1.0); GFR 60.4; POTASSIUM 3.9 mmol/L (3.5-5.1)
[2020-08-12] MEDS: ASPIRIN CHEWABLE 81 MG TABLET. PO SCH (09:06)
[2020-08-12] MEDS: BENZONATATE 100 MG CAPSULE. PO SCH ×2 (09:06→14:24)
[2020-08-12] MEDS: CETIRIZINE HCL 10 MG TABLET PO SCH (09:06)
[2020-08-12] MEDS: LACTOBACILLUS RHAMNOSUS GG 1 CAPSULE. PO SCH (09:06)
[2020-08-12] MEDS: POTASSIUM CHLORIDE 20 MEQ TABLET.ER. PO SCH (09:07)
[2020-08-12] MEDS: AMIODARONE HCL 200 MG TABLET. PO SCH (09:07)
[2020-08-12] MEDS: PANTOPRAZOLE 40 MG TABLET. PO SCH (09:07)
[2020-08-12] MEDS: METOPROLOL TART IMMED RELEASE 25 MG TABLET. PO SCH (09:08)
[2020-08-12] MEDS: ATORVASTATIN CALCIUM 20 MG TABLET PO SCH (09:08)
[2020-08-12] MEDS: DEXAMETHASONE SOD PHOS 10 MG/ML VIAL. IV SCH (09:09)
[2020-08-12] MEDS: IPRATROPIUM/ALBUTEROL 20/100mcg/INH INHALER. INH SCH ×2 (09:10→12:29)
[2020-08-12] MEDS: ALBUTEROL SULFATE 8GM INHALER. INH PRN (09:10)
[2020-08-12] MEDS: NON FORMULARY ITEM PO SCH (09:11)
[2020-08-12 11:10] VITALS: BP 97/53
[2020-08-12] MEDS ORDERED: CEFD300C PO (13:57)
--- NOTE | 2020-08-12 14:20 | DS ---
DATE OF DISCHARGE: 08/12/2020 HOSPITAL COURSE: The patient is a 79-year-old female patient who was admitted on 08/05/2020 with increasing shortness of breath, cough. She has also Coumadin-induced coagulopathy. Her chest x-ray showed that she has bilateral bibasilar infiltrate and chronic left pleural effusion. She was admitted originally with community-acquired pneumonia and coagulopathy. Subsequently, her COVID-19 came back positive. Her influenza A and B were negative. She was treated with IV antibiotic in the form of ceftriaxone as well as Zithromax, dexamethasone and remdesivir. Initially, her oxygen requirement was high and has gradually improved such that she is on room air, maintaining her oxygen saturation at 95%. PHYSICAL EXAMINATION: GENERAL: When I examined her today, she looked well and was clearly in no apparent respiratory distress. No pallor, jaundice, cyanosis or thyromegaly. No jugular venous distention. No lower limb edema. VITAL SIGNS: Her heart rate was 93, blood pressure was 97/53, temperature was 97.3, respiratory rate was 18 and oxygen saturation was 95% on room air. HEAD, EYES, EARS, NOSE AND THROAT: Normocephalic, atraumatic. NECK: Supple. HEART: Normal first and second heart sounds. No gallop or murmur. CHEST: Clear to auscultation. No crepitation or rhonchi. ABDOMEN: Scaphoid, soft, nontender. NEUROLOGIC: She was awake, alert, responding appropriately. All cranial nerves intact. EXTREMITIES: She moves extremities without difficulty. She ambulates without assistance or assistive devices. LABORATORY DATA: As of yesterday, her white cell count was 10,900, hemoglobin 12, hematocrit 38, MCV 90 and platelet count of 313,000. Her chemistry showed a serum sodium 142, potassium 3.9, chloride 110, bicarbonate 24, anion gap of 8, BUN 35, creatinine 0.9. Estimated GFR was 60 mL per minute. Her glucose was 85, calcium was 8.1. As of this morning, her prothrombin time was 10.5, INR of 2. Her urinalysis essentially unremarkable and her coronavirus PCR was detectable. Her influenza A and B were negative. DISCHARGE MEDICATIONS: She will be discharged home to continue on cefdinir 300 mg twice a day for 4 more days, dexamethasone 4 mg once a day for 3 days and dexamethasone 2 mg once a day for 2 or 3 days, amiodarone 200 mg twice a day, amlodipine 5 mg twice a day, aspirin 81 mg once a day, atorvastatin calcium 20 mg at bedtime, glucosamine chondroitin sulfate, Osteo Bi-Flex 1 tablet daily. She is on hydrochlorothiazide 12.5 mg once a day, ipratropium bromide for Atrovent. She is also on loperamide 2 mg daily as needed, loratadine 10 mg once a day, lorazepam 0.5 mg every 8 hours as needed, losartan potassium for Cozaar 100 mg daily, omeprazole 20 mg twice a day, potassium chloride 20 mEq daily, sucralfate 1 gram 4 times a day and warfarin 4 mg once a day. FINAL DISCHARGE DIAGNOSES: 1. COVID-19 pneumonia. 2. Acute hypoxic respiratory failure, improved. She is now on room air, maintaining her oxygen saturation at 95%. 3. The patient has multiple other medical problems including: a. Chronic atrial fibrillation with rapid ventricular response, rate much better controlled. b. Coumadin-induced coagulopathy. Her INR is 2.1. c. Hypertension. d. Gastroesophageal reflux disease. e. Gout. PARISH LEE MD DR: RUID/yancy JOB#: [id number] / [id number]
[2020-08-12] MEDS ORDERED: DEXA4TAB PO ×2 (15:03→15:08)
== END 2020-08-12 16:00 | disposition home or self-care (01) | DRG 177 ==
LOC: ER 14:37 → ICU 16:55 → 1 SOUTH 08-09 07:42
PROVIDERS: ADMIT Hospitalist; ATTEND Hospitalist
PROC: XW033E5 Introduction of Remdesivir Anti-infective into Peripheral Vein, Percutaneous Approach, New Technology Group 5 (ICD-10-PCS; principal; 2020-08-07)
DX: U07.1 COVID-19 (principal); J96.01 Acute respiratory failure with hypoxia; J12.89 Other viral pneumonia; I48.20 Chronic atrial fibrillation, unspecified; E87.1 Hypo-osmolality and hyponatremia; D68.8 Other specified coagulation defects; E78.5 Hyperlipidemia, unspecified; E87.6 Hypokalemia; G47.00 Insomnia, unspecified; I10 Essential (primary) hypertension; I48.0 Paroxysmal atrial fibrillation; J06.9 Acute upper respiratory infection, unspecified; K21.9 Gastro-esophageal reflux disease without esophagitis; M10.9 Gout, unspecified; Z79.01 Long term (current) use of anticoagulants; Z80.1 Family history of malignant neoplasm of trachea, bronchus and lung; Z87.891 Personal history of nicotine dependence; Z95.818 Presence of other cardiac implants and grafts; T45.515A Adverse effect of anticoagulants, initial encounter; Y92.89 Other specified places as the place of occurrence of the external cause
CPT/HCPCS: 36415; 71045; 80048; 80053; 81001; 82550; 83605; 83880; 84484; 85025; 85027; 85610; 85730; 87040; 87086; 87804; 93005; J0456; J0696; J1100; J1160; J3430; J7050; U0003; 99291-25

== ENCOUNTER → 2020-12-04 | Outpatient (CLI) | payer MEDICARE ==
[~2020-12-04] MED LIST changes: +AMIO200T7 PO; +ATOR20TA58 PO; +CEFD300C PO; +DEXA4TAB PO; +DOXY-96 PO; +GLUC1TAB69 PO; +HYDR12.58 PO; +LOPE1LIQ7 PO; +POTA20TA4 PO
--- NOTE | 2020-12-05 18:54 | RAD ---
DATE: 12/04/2020 EXAM: MAMMO LAVINIA SCREENING BILATERAL HISTORY: Screening COMPARISON: 11/02/2019, 10/27/2018, 10/17/2017 This study was interpreted with the benefit of Computerized Aided Detection (CAD). Breast Density: SCATTERED The breast parenchyma shows scattered fibroglandular densities. Breast parenchyma level B. FINDINGS: No mass, suspicious calcification, or architectural distortion in either breast. IMPRESSION: No evidence of malignancy. BI-RADS CATEGORY: 1 NEGATIVE RECOMMENDED FOLLOW-UP: 12M 12 MONTH FOLLOW-UP PQRS compliance statement: Patient information was entered into a reminder system with a target due date for the next mammogram. Mammography is a sensitive method for finding small breast cancers, but it does not detect them all and is not a substitute for careful clinical examination. A negative mammogram does not negate a clinically suspicious finding and should not result in delay in biopsying a clinically suspicious abnormality. "Our facility is accredited by the [employer] Mammography Program."
== END ==
LOC: MAMMO 10:30
PROVIDERS: ATTEND Internal Medicine
DX: Z12.31 Encounter for screening mammogram for malignant neoplasm of breast (principal)
CPT/HCPCS: 77063; 77067

== ENCOUNTER 2021-06-09 15:25 | Emergency (ER) | payer MEDICARE ==
[~2021-06-09] VITALS: Ht 177.8 cm; Wt 65.5 kg
[~2021-06-09 15:25] MED LIST changes: +POTA-121 PO; -POTA20TA4 PO
[2021-06-09] MEDS ORDERED: IV NORMAL SALINE 1,000ML 1,000 ML IV SCH (16:15)
--- NOTE | 2021-06-09 16:39 | PHYS DOC ---
Past History Past Medical History: A-Fib (EFRAIN GILL APRN) Past Surgical History: Other Additional Past Surgical Histo: IV filter (EFRAIN GILL APRN) Alcohol Use: None (EFRAIN GILL APRN) General Adult EDM: Chief Complaint: RECTAL BLEED HPI: HPI: Patient is a 80-year-old female who presents to the emergency department for rectal bleeding. She states her rectal bleeding started 48 hours ago. She states that the rectal bleeding is with a bowel movement. It is dark red and mixed in with the stool. It does not fill the toilet she states. Patient's last bowel movement was today. She has a history of GI bleeding and follows up with a GI doctor at [facility]. She was sent into the ER by Dr. Juarez. Patient denies any chest pain, shortness of breath, lightheadedness, nausea, vomiting, diarrhea, abdominal pain, fevers. Patient has a history of A. fib and takes 81 mg of aspirin daily. (EFRAIN GILL APRN) Review of Systems: Review of Systems: 14 body systems of the review of systems have been reviewed. See HPI for pertinent positive and negative responses, otherwise all other systems are negative, nonpertinent or noncontributory (EFRAIN GILL APRN) Current Medications: Current Meds: Current Medications Medications (Trade) Dose Ordered Sig/Rosa Start Time Stop Time Status Last Admin Dose Admin Sodium Chloride 1,000 ml @ 1,000 mls/hr Q1H 06/09/21 16:15 06/09/21 17:14 UNV (EFRAIN GILL APRN) Allergies: Allergies: Allergies Coded Allergies Type Severity Reaction Last Updated Verified No Known Drug Allergies 08/05/20 No (EFRAIN GILL APRN) Physical Exam: PE: Constitutional: Well developed, well nourished, no acute distress, non-toxic appearance. [] HENT: Normocephalic, atraumatic, bilateral external ears normal, oropharynx moist, no oral exudates, nose normal. [] Eyes: PERRL, EOMI, conjunctiva normal, no discharge. [] Neck: Normal range of motion, no stridor Cardiovascular:Heart rate regular rhythm, no murmur [] Lungs & Thorax: Bilateral breath sounds clear to auscultation [] Abdomen: Bowel sounds normal, soft, no tenderness, no masses, no pulsatile masses. [] Skin: Warm, dry, no erythema, no rash. [] Back: Normal range of motion Extremities: No tenderness, no cyanosis, no clubbing, ROM intact, no edema. [] Neurologic: Alert and oriented X 3, normal motor function, normal sensory fun ction, no focal deficits noted. [] Psychologic: Affect normal, judgement normal, mood normal. [] (EFRAIN GILL APRN) Current Patient Data: Labs: Laboratory Tests Test 06/09/21 16:36 White Blood Count 8.5 x10^3/uL Red Blood Count 3.88 x10^6/uL Hemoglobin 10.9 g/dL Hematocrit 33.8 % Mean Corpuscular Volume 87 fL Mean Corpuscular Hemoglobin 28 pg Mean Corpuscular Hemoglobin Concent 32 g/dL Red Cell Distribution Width 15.7 % Platelet Count 306 x10^3/uL Neutrophils (%) (Auto) 69 % Lymphocytes (%) (Auto) 21 % Monocytes (%) (Auto) 10 % Eosinophils (%) (Auto) 1 % Basophils (%) (Auto) 1 % Neutrophils # (Auto) 5.8 x10^3uL Lymphocytes # (Auto) 1.7 x10^3/uL Monocytes # (Auto) 0.8 x10^3/uL Eosinophils # (Auto) 0.1 x10^3/uL Basophils # (Auto) 0.0 x10^3/uL Prothrombin Time 10.2 SEC Prothromb Time International Ratio 1.0 Activated Partial Thromboplast Time 23 SEC Sodium Level 142 mmol/L Potassium Level 3.5 mmol/L Chloride Level 105 mmol/L Carbon Dioxide Level 31 mmol/L Anion Gap 6 Blood Urea Nitrogen 28 mg/dL Creatinine 1.0 mg/dL Estimated GFR (Cockcroft-Gault) 53.3 BUN/Creatinine Ratio 28 Glucose Level 113 mg/dL Calcium Level 8.9 mg/dL Total Bilirubin 0.3 mg/dL Aspartate Amino Transf (AST/SGOT) 19 U/L Alanine Aminotransferase (ALT/SGPT) 21 U/L Alkaline Phosphatase 152 U/L Total Protein 7.1 g/dL Albumin 3.4 g/dL Albumin/Globulin Ratio 0.9 Lipase 53 U/L Current Medications Medications (Trade) Dose Ordered Sig/Rosa Route PRN Reason Start Time Stop Time Status Last Admin Dose Admin Sodium Chloride 1,000 ml @ 1,000 mls/hr Q1H IV 06/09/21 16:15 06/09/21 17:14 DC 06/09/21 17:43 Pantoprazole Sodium (Protonix Vial) 80 mg 1X ONCE IVP 06/09/21 16:45 06/09/21 16:46 DC 06/09/21 17:43 Iohexol (Omnipaque 300 Mg/ml) 75 ml 1X ONCE IV 06/09/21 17:30 06/09/21 17:32 DC 06/09/21 17:31 Vital Signs: Vital Signs Date Time Temp Pulse Resp B/P (MAP) Pulse Ox O2 Delivery O2 Flow Rate FiO2 06/09/21 16:22 98.4 90 16 148/89 (108) 99 Room Air (EFRAIN GILL BURNING SUPERVISOR) EKG: EKG: EKG performed by ER staff at 1623 shows sinus rhythm with a heart rate of eighty-nine, QTc four eighty, no STEMI read by Dr. Velasquez at 1629 (EFRAIN GILL BURNING SUPERVISOR) Radiology/Procedures: Radiology/Procedures: []PROCEDURE: CT ABD PELV W/ IV CONTRST ONLY CT OF THE ABDOMEN AND PELVIS WITH IV CONTRAST. History: Reason: GI BLEED HX OF BLEEDS IN THE PAST / Spl. Instructions: / History: Comparison:None. Procedure: Contiguous axial images of the abdomen and pelvis were performed after the administration of 75 cc of Isovue 370 IV contrast. Oral contrast: No. Findings: There is been prior colon study. The common bile is mildly dilated to 8.5 mm. There is a 4 cm length of asymmetric moderate wall thickening of the proximal sigmoid colon. The appendix is not seen. There is fat-containing inguinal canal hernias. There is moderate sigmoid diverticulosis without surrounding inflammation. Liver: Unremarkable Spleen: Unremarkable Pancreas: Atrophic Adrenal Glands: 1.6 cm hypoattenuating lesion in the left adrenal is likely an adrenal adenoma Kidneys: Hypoattenuating lesion with volume loss and peripheral calcification in the mid right kidney posteriorly suggest postsurgical scar. There is no mass or lymphadenopathy. There is no free air. There is no free fluid. The urinary bladder appears normal. There is a small hiatal hernia. Impression: 1. 4 cm length of moderate asymmetric wall thickening medially in the proximal sigmoid colon is suspicious for an adenocarcinoma. Inflammatory or infectious colitis is possible. There is no diverticulitis. There is no air in the wall to suggest ischemic colitis. 2. Mildly dilated common bile duct not unusual in a postcholecystectomy patient. End Impression PQRS Compliance Statement: One or more of the following individualized dose reduction techniques were utilized for this examination: 1. Automated exposure control 2. Adjustment of the mA and/or kV according to patient size 3. Use of iterative reconstruction technique Electronically signed by: Sri Mendes III, MD (06/09/2021 5:58 PM) [facility] DICTATED AND SIGNED BY: SRI MENDES III, MD DATE: 06/09/21 1750 CC: EFRAIN GILL APRN; SAI JUAREZ MD ~MTH0 0 (EFRAIN GILL APRN) Heart Score: C/O Chest Pain: N/A Risk Factors: Risk Factors: DM, Current or recent (<one month) smoker, HTN, HLP, family history of CAD, obesity. Risk Scores: Score 0 - 3: 2.5% MACE over next 6 weeks - Discharge Home Score 4 - 6: 20.3% MACE over next 6 weeks - Admit for Clinical Observation Score 7 - 10: 72.7% MACE over next 6 weeks - Early Invasive Strategies (EFRAIN GILL APRN) Course & Med Decision Making: Course & Med Decision Making Pertinent Labs and Imaging studies reviewed. (See chart for details) [] Patient presents to the emergency department for rectal bleeding. Work-up in the ER consisted of blood work, CT scan of abdomen, EKG. Patient treated with a liter of normal saline and IV protonix. Patient's vital signs are stable at this time, she is not tachycardic nor hypotensive. Fecal occult positive for bright red blood. hgb 10.9, hct 33.8, normal cmp, CT scan of abdomen shows 4 cm wall thickening proximal sigmoid colon suspicious for adenocarcinoma or infectious/inflammatory colitis. I paged the patient's GI doctor at [facility]. For return call, patient notifies ER nurse that she would like to be discharged home with the antibiotic and given records of her CT imaging so that she can follow-up with the GI doctor. She states that she does not like her old GI doctor and would like the imaging reports that she can follow-up with a new one. Patient's vital signs are stable at this time. Patient given an antibiotic to treat colitis. Patient given first dose in the ER. I discussed with patient all findings and diagnostic testing as well as the need to follow- up with PCP for further evaluation and treatment or return to the ER if any new or worsening symptoms. Strict return precautions were also discussed at length. Patient voiced understanding and agreement with the plan. Patient is hemodynamically stable at the time of disposition. (EFRAIN GILL APRN) Dragon Disclaimer: Dragskinny Disclaimer: This electronic medical record was generated, in whole or in part, using a voice recognition dictation system. (EFRAIN GILL APRN) Attending Co-Sign The patient was seen and interviewed as well as examined at the bedside. The chart was reviewed. The case was discussed. Agree with the plan of care. (RADHA MORA DO) Departure Departure: Impression: Primary Impression: Rectal bleeding Disposition: HOME / SELF CARE / HOMELESS Condition: GOOD Referrals: SAI JUAREZ MD (PCP) Patient Instructions: Colitis, Rectal Bleeding Additional Instructions: You were seen in the emergency department for rectal bleeding. Your hemoglobin level was 10.9 today. This does not indicate that you need a blood transfusion at this time. Your CT scan showed inflammatory changes of your colon which could indicate colitis or adenocarcinoma. You were discharged home with the CT report. You requested to be discharged home. Please follow-up with your GI doctor tomorrow regarding your ER visit. Please return to the emergency department if you develop worsening of your rectal bleeding, lightheadedness, chest pain, shortness of breath, palpitations, intractable nausea or vomiting, blood in your vomit, high fevers refractory to treatment or abdominal pain. EMERGENCY DEPARTMENT GENERAL DISCHARGE INSTRUCTIONS Thank you for coming to [facility] (ED) today and trusting us with you care. We trust that you had a positivie experience in our Emergency Department. If you wish to speak to the department management, you may call the director at [phone]. YOUR FOLLOW UP INSTRUCTIONS ARE FOLLOWS: 1. Do you have a private Doctor? If you do not have a private doctor, please ask for a resource list of physicians or clinics that may be able to assist you with follow up care. 2. The Emergency Physician has interpreted your x-rays. The X-Ray specialist will also review them. If there is a change in the findings, you will be notified in 48 hours when at all possible. 3. A lab test or culture has been done, your results will be reviewed and you will be notified if you need a change in treatment. ADDITIONAL INSTRUCTIONS AND INFORMATION: 1. Your care today has been supervised by a physician who is specially trained in emergency care. Many problems require more than one evaluation for a complete diagnosis and treatment. We recommend that you schedule your follow up appointment as recommended to ensure complete treatment of you illness or injury. If you are unable to obtain follow up care and continue to have a problem, or if your condition worsens, we recommend that you return to the ED. 2. We are not able to safely determine your condition over the phone nor are we able to give sound medical advice over the phone. For these safety reasons, if you call for medical advice we will ask you to come to the ED for further evaluation. 3. If you have any questions regarding these discharge instructions please call the ED at [phone]. SAFETY INFORMATION: In the interest of safety, wellness, and injury prevention; we encourage you to wear your sealbelt, if you smoke; quite smoking, and we encourage family to use a protective helmet for bicycling and other sporting events that present an increased risk for head injury. IF YOUR SYMPTOMS WORSEN OR NEW SYMPTOMS DEVELOP, OR YOU HAVE CONCERNS ABOUT YOUR CONDITION; OR IF YOUR CONDITION WORSENS WHILE YOU ARE WAITING FOR YOUR FOLLOW UP APPOINTMENT; EITHER CONTACT YOUR PRIMARY CARE DOCTOR, THE PHYSICIAN WHOSE NAME AND NUMBER YOU WERE GIVEN, OR RETURN TO THE ED IMMEDIATELY. Scripts Amoxicillin/Potassium Clav (AUGMENTIN 875-125 TABLET) 1 Each Tablet 1 TAB PO BID for colitis for 10 Days, #20 TAB 0 Refills Prov: EFRAIN GILL APRN 06/09/21 EFRAIN GILL APRN Jun 09, 2021 16:39 RADHA MORA DO Jun 10, 2021 05:57
[2021-06-09] MEDS ORDERED: PANTOPRAZOLE IV 40 MG VIAL. IVP ONE (16:45)
--- NOTE | 2021-06-09 16:45 | EKG ---
[address] [address] Test Date: 2021-06-09 Test Time: 16:23:55 Pat Name: LUIS DANIEL MOLINA Department: Room: Gender: F [employer] Professor: LUCIANA : 1940 Requested By: EFRAIN GILL Order Number: [id number] Reading MD: Octavio Luna MD Measurements Intervals Lynn Rate: 89 P: 90 IN: 170 QRS: 6 QRSD: 90 T: 30 QT: 394 QTc: 480 Interpretive Statements SINUS RHYTHM PROLONGED QT Electronically Signed On 06-10-2021 17:32:13 CDT by Octavio Luna MD
[2021-06-09 17:05] LABS: BASO % 1 % (0-3); EOS # 0.1 x10^3/uL (0.0-0.7); EOS % 1 % (0-3); HEMATOCRIT 33.8 % (36.0-47.0); HEMOGLOBIN 10.9 g/dL (12.0-15.5); LYMPH # 1.7 x10^3/uL (1.0-4.8); LYMPH % 21 % (24-48); MEAN CORPUSCULAR HEMOGLOBIN 28 pg (25-35); MEAN CORPUSCULAR HGB CONC 32 g/dL (31-37); MEAN CORPUSCULAR VOLUME 87 fL (79-100); MONO # 0.8 x10^3/uL (0.0-1.1); MONO % 10 % (0-9); NEUT # 5.8 x10^3uL (1.8-7.7); NEUT % 69 % (31-73); PLATELET COUNT 306 x10^3/uL (140-400); RED BLOOD COUNT 3.88 x10^6/uL (3.50-5.40); RED CELL DISTRIBUTION WIDTH 15.7 % (11.5-14.5); WHITE BLOOD COUNT 8.5 x10^3/uL (4.0-11.0)
[2021-06-09 17:09] LABS: CALCIUM 8.9 mg/dL (8.5-10.1); GFR 53.3; POTASSIUM 3.5 mmol/L (3.5-5.1)
[2021-06-09 17:15] LABS: ALBUMIN 3.4 g/dL (3.4-5.0); ALBUMIN/GLOBULIN RATIO 0.9 (1.0-1.7); TOTAL BILIRUBIN 0.3 mg/dL (0.2-1.0); TOTAL PROTEIN 7.1 g/dL (6.4-8.2)
[2021-06-09] MEDS ORDERED: IOHEXOL 300 MG/ML 75 ML VIAL. IV ONE (17:30)
--- NOTE | 2021-06-09 18:00 | RAD ---
CT OF THE ABDOMEN AND PELVIS WITH IV CONTRAST. History: Reason: GI BLEED HX OF BLEEDS IN THE PAST / Spl. Instructions: / History: Comparison:None. Procedure: Contiguous axial images of the abdomen and pelvis were performed after the administration of 75 cc o f Isovue 370 IV contrast. Oral contrast: No. Findings: There is been prior colon study. The common bile is mildly dilated to 8.5 mm. There is a 4 cm length of asymmetric moderate wall thickening of the proximal sigmoid colon. The appendix is not seen. There is fat-containing inguinal canal hernias. There is moderate sigmoid diverticulosis without surr ounding inflammation. Liver: Unremarkable Spleen: Unremarkable Pancreas: Atrophic Adrenal Glands: 1.6 cm hypoattenuating lesion in the left adrenal is likely an adrenal adenoma Kidneys: Hypoattenuating lesion with volume loss and peripheral calcification in the mid right kidney posteriorly suggest postsurgical scar. There is no mass or lymphadenopathy. There is no free air. There is no free fluid. The urinary bladder appears normal. There is a small hiatal hernia. Impression: 1. 4 cm length of moderate asymmetric wall thickening medially in the proximal sigmoid colon is suspi cious for an adenocarcinoma. Inflammatory or infectious colitis is possible. There is no diverticulit is. There is no air in the wall to suggest ischemic colitis. 2. Mildly dilated common bile duct not unusual in a postcholecystectomy patient. End Impression PQRS Compliance Statement: One or more of the following individualized dose reduction techniques were utilized for this examinat ion: 1. Automated exposure control 2. Adjustment of the mA and/or kV according to patient size 3. Use of iterative reconstruction technique Electronically signed by: German Taylor III, MD (06/09/2021 5:58 PM) [facility]
[2021-06-09 18:29] LABS: BACTERIA,URINE FEW /HPF (0-FEW); BILIRUBIN,URINE NEG (NEG); CLARITY,URINE CLEAR; COLOR,URINE YELLOW; GLUCOSE,URINE NEG (NEG); NITRITE,URINE NEG (NEG); RBC,URINE 0 /HPF (0-2); SQUAMOUS EPITHELIAL CELL,UR FEW /LPF; UROBILINOGEN,URINE 0.2 mg/dL (0.2 mg/dL)
[2021-06-09 19:24] VITALS: BP 168/80
[2021-06-09] MEDS ORDERED: AMOXICILLIN/K CLAV 875/125MG TABLET. PO ONE (19:30)
[2021-06-09] MEDS ORDERED: AMOX1TAB61 PO (19:32)
== END 2021-06-09 19:58 | disposition home or self-care (01) ==
LOC: ER 15:25
DX: K62.5 Hemorrhage of anus and rectum (principal)
CPT/HCPCS: 36415; 74177; 80053; 81001; 83690; 85025; 85610; 85730; 86850; 86900; 86901; 87086; 93005; 96361; 96374; 99285; C9113; J7030; Q9967

== ENCOUNTER → 2021-11-26 | Outpatient (CLI) | payer MEDICARE ==
[~2021-11-26] MED LIST changes: +AMOX1TAB61 PO
[2021-11-26 13:58] LABS: ALBUMIN 3.2 g/dL (3.4-5.0); CALCIUM 8.7 mg/dL (8.5-10.1); CREATININE 1.1 mg/dL (0.6-1.0); GFR 47.7; MAGNESIUM 2.1 mg/dL (1.8-2.4); POTASSIUM 4.3 mmol/L (3.5-5.1); TOTAL BILIRUBIN 0.3 mg/dL (0.2-1.0); TOTAL PROTEIN 6.3 g/dL (6.4-8.2)
--- NOTE | 2021-11-26 16:42 | RAD ---
EXAMINATION: XR CHEST 2V CLINICAL HISTORY: Cough. EXAM DATE/TIME: 11/26/2021 12:27 PM COMPARISON: None FINDINGS: Lines, Tubes, and Devices: None. Cardiomediastinal Silhouette: Borderline cardiomegaly. Aortic atherosclerotic calcification. Lungs and Pleura: No evidence of focal airspace consolidation or pleural effusion. Pulmonary vasculat ure unremarkable. Bones and Soft Tissues: Degenerative changes in the thoracic spine. Epigastric surgical clips. IMPRESSION: No evidence of acute cardiopulmonary abnormality. Electronically signed by: Marky Taylor DO (11/26/2021 4:39 PM) [id number]
[2021-11-27 16:22] LABS: FREE T4 1.19 ng/dL (0.76-1.46); THYROID STIM HORMONE (TSH) 3.939 uIU/mL (0.358-3.740)
== END ==
LOC: RAD 12:11
PROVIDERS: ATTEND Internal Medicine Interventional Cardiology
DX: I48.19 Other persistent atrial fibrillation (principal); I51.7 Cardiomegaly; I70.0 Atherosclerosis of aorta; M47.814 Spondylosis without myelopathy or radiculopathy, thoracic region; Z79.899 Other long term (current) drug therapy
CPT/HCPCS: 36415; 71046; 80053; 83735; 84439; 84443

== ENCOUNTER → 2021-12-08 | Outpatient (CLI) | payer MEDICARE ==
--- NOTE | 2021-12-08 13:57 | RAD ---
BILATERAL SCREENING MAMMOGRAM History: Routine screening. Comparison: Most recently on 12/04/2020. Technique: Routine 2D and 3D tomosynthesis digital mammogram views were obtained bilaterally. Interpr etation was assisted with the use of computer-aided detection. Findings: Breast Tissue Density B : There are scattered areas of fibroglandular density. There are no dominant masses, suspicious microcalcifications, or architectural distortion. IMPRESSION: No mammographic evidence of malignancy. Recommend routine screening mammography in one year. BI-RADS category 1: Negative. Patient information is entered into the reminder system with a target due date for the next screening mammogram. "Our facility is accredited by the [employer] Mammography Program." Electronically signed by: FABIO HILL MD (12/08/2021 1:54 PM) [id number]
== END ==
LOC: MAMMO 10:50
PROVIDERS: ATTEND Internal Medicine
DX: Z12.31 Encounter for screening mammogram for malignant neoplasm of breast (principal)
CPT/HCPCS: 77063; 77067

== ENCOUNTER 2021-12-11 16:18 | Emergency (ER) | payer MEDICARE ==
[~2021-12-11] VITALS: Ht 177.8 cm; Wt 77.3 kg
[2021-12-11] MEDS ORDERED: LIDOCAINE 1%/EPI 1:100,000 20 ML VIAL. IJ ONE (16:45)
--- NOTE | 2021-12-11 16:51 | PHYS DOC ---
Past History Past Medical History: A-Fib (EFRAIN GILL APRN) Past Surgical History: Other Additional Past Surgical Histo: IV filter (EFRAIN GILL APRN) Alcohol Use: None (EFRAIN GILL APRN) General Adult EDM: Chief Complaint: LACERATION/AVULSION HPI: HPI: Patient is an 81-year-old female who presents to the emergency department today for a laceration to her right leg. Patient reports that she was doing some yard work outside when she scratched her leg on a brick. Patient denies any blood thinner use but reports she takes daily aspirin. She reports that her tetanus is up-to-date. Patient is concerned because she cannot get the skin tear to stop bleeding. (EFRAIN GILL APRN) Review of Systems: Review of Systems: Musculoskeletal: Denies pain to leg Integument: See HPI Neurologic: Denies any decreased sensation to her extremity (EFRAIN GILL APRN) Current Medications: Current Meds: Current Medications Medications (Trade) Dose Ordered Sig/Rosa Start Time Stop Time Status Last Admin Dose Admin Lidocaine/ Epinephrine (Xylocaine 1%-Epi 1:100,000) 20 ml 1X ONCE 12/11/21 16:45 12/11/21 16:46 UNV (EFRAIN GILL APRN) Allergies: Allergies: Allergies Coded Allergies Type Severity Reaction Last Updated Verified No Known Drug Allergies 08/05/20 No (EFRAIN GILL APRN) Physical Exam: PE: Constitutional: Well developed, well nourished, no acute distress, non-toxic appearance. [] HENT: Normocephalic, atraumatic, bilateral external ears normal, oropharynx moist, no oral exudates, nose normal. [] Eyes: PERRL, EOMI, conjunctiva normal, no discharge. [] Neck: Normal range of motion, no stridor Cardiovascular: Normal peripheral perfusion Lungs & Thorax: Normal work of breathing, no tachypnea Abdomen: Soft and flat Skin: Warm, dry, no erythema, no rash. [] Back: No tenderness, normal range of motion Extremities: No tenderness, no cyanosis, no clubbing, ROM intact, no edema. [] right le cm skin tear noted to anterior aspect of patient's right leg with active bleeding noted, wound not suturable. No obvious deformity, patient able to bear weight and ambulate, normal range of motion, neuro intact Neurologic: Alert and oriented X 3, normal motor function, normal sensory function, no focal deficits noted. [] Psychologic: Affect normal, judgement normal, mood normal. [] (EFRAIN GILL APRN) EKG: EKG: [] (EFRAIN GILL APRN) Radiology/Procedures: Radiology/Procedures: [] (EFRAIN GILL APRN) Heart Score: C/O Chest Pain: N/A Risk Factors: Risk Factors: DM, Current or recent (<one month) smoker, HTN, HLP, family history of CAD, obesity. Risk Scores: Score 0 - 3: 2.5% MACE over next 6 weeks - Discharge Home Score 4 - 6: 20.3% MACE over next 6 weeks - Admit for Clinical Observation Score 7 - 10: 72.7% MACE over next 6 weeks - Early Invasive Strategies (EFRAIN GILL APRN) Course & Med Decision Making: Course & Med Decision Making Pertinent Labs and Imaging studies reviewed. (See chart for details) [] Patient presents to the emergency department for skin tear to the anterior aspect of her left lower leg. Wound is actively bleeding, there is no area that is suturable as she has a skin tear. lidocaine with epi was ordered to inject at the site of bleeding to help vasoconstrict and allow for dermabond repair of skin tear. Upon return to patients room, her bleeding had stopped and the skin tear was repaired with dermabond. Patient tolerated procedure. Bleeding has discontinued. Patient educated on laceration care. I discussed with patient all findings and diagnostic testing as well as the need to follow-up with PCP for further evaluation and treatment or return to the ER if any new or worsening symptoms. Strict return precautions were also discussed at length. Patient voiced understanding and agreement with the plan. Patient is hemodynamically stable at the time of disposition. (EFRAIN GILL APRN) Dragon Disclaimer: Dragon Disclaimer: This electronic medical record was generated, in whole or in part, using a voice recognition dictation system. (EFRAIN GILL APRN) Attending Co-Sign The patient was seen and interviewed as well as examined at the bedside. The chart was reviewed. The case was discussed. Agree with the plan of care. (RADHA MORA DO) Departure Departure: Impression: Primary Impression: Skin tear Disposition: 01 HOME / SELF CARE / HOMELESS Condition: GOOD Referrals: SAI JUAREZ MD (PCP) Patient Instructions: Skin Tear Care Additional Instructions: You are seen in the emergency department today for a skin tear which was repaired with skin glue. Please do not pick at the skin glue. Do not submerge your leg in any water for 2 to 3 days. You can keep this clean and dry with mild soap and warm water. Do not apply any ointments like triple antibiotic ointment or Polysporin ointment as it will erode the glue. You can take Tylenol or Motrin if you develop any pain. Monitor for any signs of infection which include redness, warmth, swelling or drainage. Follow-up with your primary care provider within 2 days for wound recheck. Return to the emergency department if you develop any signs of infection, increased pain, high fevers refractory to treatment, tractable nausea or vomiting, inability to bear weight or walk. EFRAIN GILL APRN Dec 11, 2021 16:51 RADHA MORA DO Dec 12, 2021 06:16
[2021-12-11 16:55] VITALS: BP 156/92
== END 2021-12-11 17:23 | disposition home or self-care (01) ==
LOC: ER 16:18
DX: S81.811A Laceration without foreign body, right lower leg, initial encounter (principal); I48.91 Unspecified atrial fibrillation; Z79.82 Long term (current) use of aspirin; W22.8XXA Striking against or struck by other objects, initial encounter; Y93.89 Activity, other specified; Y92.89 Other specified places as the place of occurrence of the external cause; Y99.8 Other external cause status
CPT/HCPCS: 12001; 99282